=== PATIENT | female | born 1965 | race Caucasian/White ===

== ENCOUNTER 2017-03-11 09:57 | Outpatient (CLI) | payer MEDICAID | END 2017-03-11 09:58 | disposition home or self-care (01) | DX: Z12.31 Encounter for screening mammogram for malignant neoplasm of breast (principal) ==

== ENCOUNTER 2017-05-14 08:34 | Outpatient (CLI) | payer MEDICAID ==
[2017-05-14 10:32] LABS: HEMOGLOBIN A1C 0.64 g/dL
[2017-05-14 10:33] LABS: THYROID STIMULATING HORMONE 2.46 uIU/mL (0.34-5.60)
== END 2017-05-14 08:35 | disposition home or self-care (01) ==
LOC: LAB 08:34
PROVIDERS: ATTEND Internal Medicine Geriatric Medicine
DX: R53.83 Other fatigue (principal)
CPT/HCPCS: 36415; 82306; 82607; 83036; 84443; 85651; 86140

== ENCOUNTER 2017-07-21 08:20 | Outpatient (CLI) | payer MEDICAID ==
--- NOTE | 2017-07-21 09:54 | Ultrasound Report ---
COMPLETE ABDOMINAL ULTRASOUND: 07/21/2017 CLINICAL INDICATION: Leukopenia. 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 FINDINGS: The liver measures 16.2 cm. Hepatic echotexture is normal. No intrahepatic biliary dilatat ion or focal parenchymal lesion is present. The common bile duct measures 3 mm. The gallbladder is no rmal. The pancreas appears unremarkable. The right kidney measures 11.4 cm, and is unremarkable. The left kidney measures 11.4 cm, and demonstrates an 1.4 cm cyst in the lower pole. The spleen measures 8.5 cm, and demonstrates normal echotexture. The abdominal aorta and inferior vena cava are unremarka ble. No free fluid is present. IMPRESSION: INCIDENTAL LEFT RENAL CYST. NORMAL APPEARANCE OF THE SPLEEN. JOB #: [id number] EXT JOB #:[id number]
== END 2017-07-21 08:21 | disposition home or self-care (01) ==
LOC: DI 08:20
PROVIDERS: ATTEND Internal Medicine Hematology & Oncology
DX: D72.819 Decreased white blood cell count, unspecified (principal); N28.1 Cyst of kidney, acquired
CPT/HCPCS: 36415; 76700; 87040

== ENCOUNTER 2017-12-26 09:40 | Outpatient (CLI) | payer MEDICAID ==
[2017-12-26 17:47] LABS: BASOPHILS % (AUTO) 0.9 %; EOSINOPHILS # (AUTO) 0.1 10^3/uL (0.0-0.7); HGB - HEMOGLOBIN 14.9 g/dL (12.0-16.0); LYMPHOCYTES # (AUTO) 1.2 10^3/uL (1.5-3.5); LYMPHOCYTES % (AUTO) 36.5 %; MEAN CORPUSCULAR HGB CONC 33.1 g/dL (32.0-36.0); MEAN CORPUSCULAR VOLUME 87.7 fL (81.0-99.0); MEAN PLATELET VOLUME 9.1 fL (7.9-10.8); MONOCYTES # (AUTO) 0.2 10^3/uL (0.0-1.0); MONOCYTES % (AUTO) 6.7 %; NEUTROPHILS # (AUTO) 1.7 10^3/uL (1.5-6.6); NEUTROPHILS % (AUTO) 52.9 %; PLT - PLATELET COUNT 197 10^3/uL (130-450); RED BLOOD COUNT 5.14 10^6/uL (4.20-5.40); RED CELL DISTRIBUTION WIDTH 13.5 % (12.0-15.0); WHITE BLOOD COUNT 3.2 x10^3/uL (4.8-10.8)
[2017-12-26 18:04] LABS: RHEUMATOID FACTOR NEGATIVE (Negative)
[2017-12-26 18:19] LABS: ALBUMIN 4.7 g/dL (3.2-5.5); ALBUMIN/GLOBULIN RATIO 1.5 (1.0-2.2); ALKALINE PHOSPHATASE 61 IU/L (42-121); ALT ALANINE AMINOTRANSFERASE 23 IU/L (10-60); AST ASPARTATE AMINOTRANSFERASE 25 IU/L (10-42); BILIRUBIN,TOTAL 0.8 mg/dL (0.2-1.0); BUN - BLOOD UREA NITROGEN 14 mg/dL (6-20); CALCIUM 9.2 mg/dL (8.5-10.3); CARBON DIOXIDE - CO2 29 mmol/L (21-32); CHLORIDE 102 mmol/L (101-111); CREATININE 0.7 mg/dL (0.4-1.0); GFR - MDRD 87 (>89); GLUCOSE 92 mg/dL (70-100); SODIUM 137 mmol/L (135-145); TOTAL PROTEIN 7.9 g/dL (6.7-8.2); URIC ACID 3.5 mg/dL (2.6-7.2)
[2017-12-26 19:08] LABS: CRP - C-REACTIVE PROTEIN < 1.0 mg/dL (0-1.0)
[2017-12-26 19:31] LABS: HEMOGLOBIN A1C 0.58 g/dL; HEMOGLOBIN A1C % 5.5 % (4.6-6.2)
[2017-12-29 15:06] LABS: ANA SCREEN POSITIVE (NEGATIVE)
[2017-12-30 20:52] LABS: 18 KD (IGG) BAND NON-REACTIVE; 23 KD (IGG) BAND NON-REACTIVE; 23 KD (IGM) BLOT NON-REACTIVE; 28 KD (IGG) BAND NON-REACTIVE; 30 KD (IGG) BAND NON-REACTIVE; 39 KD (IGG) BAND NON-REACTIVE; 39 KD (IGM) BLOT NON-REACTIVE; 41 KD (IGG) BAND REACTIVE; 41 KD (IGM) BLOT NON-REACTIVE; 45 KD (IGG) BAND NON-REACTIVE; 58 KD (IGG) BAND NON-REACTIVE; 66 KD (IGG) BAND NON-REACTIVE; 93 KD (IGG) BAND NON-REACTIVE
[2017-12-30 21:08] LABS: CYCLIC CITRULL PEPTIDE CCP IGG <16 UNITS
== END 2017-12-26 09:41 | disposition home or self-care (01) ==
LOC: LAB.F 09:40
PROVIDERS: ATTEND Physician Assistant Medical
DX: R53.83 Other fatigue (principal); R73.01 Impaired fasting glucose; M25.50 Pain in unspecified joint
CPT/HCPCS: 36415; 80053; 83036; 84443; 84550; 85025; 85651; 86038; 86039; 86140; 86200; 86430; 86617

== ENCOUNTER 2018-04-13 15:19 | Outpatient (CLI) | payer MEDICAID ==
--- NOTE | 2018-04-14 14:26 | Mammography Report ---
DIGITAL SCREENING MAMMOGRAM: 04/13/2018 CLINICAL INDICATION: A 52-year-old nulliparous patient for screening. COMPARISON: 02/2017, 02/2015, 12/2013, 12/2011, 09/2010. TECHNIQUE: Routine CC and MLO projections as well as bilateral laterally exaggerated craniocaudal views were obtained of the breasts. FINDINGS: Parenchymal tissue within both breasts is heterogeneously dense, which may lower the sensitivity of mammography; however, there are no dominant masses, suspicious microcalcifications, or secondary signs of malignancy. In comparison to the previous studies, there are no significant changes. IMPRESSION: NO MAMMOGRAPHIC EVIDENCE OF MALIGNANCY. NO SIGNIFICANT INTERVAL CHANGES. RECOMMENDATION: Screening mammography is recommended annually. BIRADS CATEGORY 1 - NEGATIVE. STANDARD QUALIFYING STATEMENTS: 1. This examination was reviewed with the aid of Computed-Aided Detection (CAD). 2. A negative or benign imaging report should not delay biopsy if clinically suspicious findings are present. Consider surgical consultation if warranted. More than 5% of cancers are not identified by imaging. 3. Dense breasts may obscure an underlying neoplasm. TD: 04/14/2018 14:15
== END 2018-04-13 15:20 | disposition home or self-care (01) ==
LOC: DI 15:19
DX: Z12.31 Encounter for screening mammogram for malignant neoplasm of breast (principal)
CPT/HCPCS: 77067

== ENCOUNTER 2018-07-10 07:14 | Outpatient (CLI) | payer MEDICAID ==
[2018-07-10] MEDS ORDERED: IOPAMIDOL-300 100 ML VIAL ONE (07:42)
[2018-07-10] MEDS ORDERED: IOPAMIDOL-300 100 ML VIAL IVP ONE (08:16)
--- NOTE | 2018-07-10 09:02 | CT Report ---
Procedure Date: 07/10/2018 Accession Number: [id number] / [id number] Procedure: CT - Abdomen W/WO CPT Code: FULL RESULT: EXAM: CT ABDOMEN WITHOUT AND WITH CONTRAST EXAM DATE: 07/10/2018. HISTORY: Cystic lesion in the uncinate process of the pancreas. COMPARISON: Abdomen ultrasound done 07/21/2017. Abdomen CT done 03/19/2016.. TECHNIQUE: Routine helical CT imaging was performed through the abdomen before IV contrast, and during the arterial and venous phases and after administration of IV contrast: 100 cc of Isovue-300. Enteric contrast: No. Reconstruction: Sagittal and coronal reformatted images of the venous phase.. In accordance with CT protocol optimization, one or more of the following dose reduction techniques were utilized for this exam: automated exposure control, adjustment of mA and/or KV based on patient size, or use of iterative reconstructive technique. FINDINGS: Lung Bases: The lungs are clear. No pleural or pericardial effusion. Liver: Normal. No masses. Gallbladder/Bile Ducts: Normal. No bile duct dilatation. Spleen: Normal. Pancreas: 3 mm cystic lesion in the uncinate process is unchanged. Pancreas otherwise appears normal. No duct dilatation. Adrenal Glands: Normal. Kidneys: Normal. No masses or hydronephrosis. Peritoneal Cavity/Bowel: No bowel dilatation. Large volume of feces in the colon. No adenopathy. No fluid collections or free air. Vasculature: Normal. Bones: Normal. IMPRESSION: The 3 mm cystic lesion in the uncinate process of the pancreas is unchanged. Recommend follow-up in 24 months, and until stability has been confirmed for a period of 5 years after the initial study. Moderate volume of feces in the visualized colon. Otherwise normal examination. RADIA
== END 2018-07-10 07:15 | disposition home or self-care (01) ==
LOC: DI 07:14
PROVIDERS: ATTEND Family Medicine
DX: K86.9 Disease of pancreas, unspecified (principal)
CPT/HCPCS: 74170; Q9967

== ENCOUNTER 2018-12-22 08:20 | Outpatient (CLI) | payer MEDICAID ==
[2018-12-22 08:45] LABS: BASOPHILS % (AUTO) 0.8 %; EOSINOPHILS # (AUTO) 0.1 10^3/uL (0.0-0.7); EOSINOPHILS % (AUTO) 3.7 %; HGB - HEMOGLOBIN 14.3 g/dL (12.0-16.0); LYMPHOCYTES # (AUTO) 1.2 10^3/uL (1.5-3.5); LYMPHOCYTES % (AUTO) 31.4 %; MEAN CORPUSCULAR HEMOGLOBIN 29.6 pg (27.0-31.0); MEAN CORPUSCULAR HGB CONC 34.1 g/dL (32.0-36.0); MEAN CORPUSCULAR VOLUME 86.9 fL (81.0-99.0); MEAN PLATELET VOLUME 8.1 fL (7.9-10.8); MONOCYTES # (AUTO) 0.3 10^3/uL (0.0-1.0); MONOCYTES % (AUTO) 7.7 %; NEUTROPHILS # (AUTO) 2.1 10^3/uL (1.5-6.6); NEUTROPHILS % (AUTO) 56.4 %; PLT - PLATELET COUNT 197 10^3/uL (130-450); RED BLOOD COUNT 4.82 10^6/uL (4.20-5.40); RED CELL DISTRIBUTION WIDTH 13.5 % (12.0-15.0); WHITE BLOOD COUNT 3.7 x10^3/uL (4.8-10.8)
[2018-12-22 09:14] LABS: ALBUMIN 3.9 g/dL (3.2-5.5); ALBUMIN/GLOBULIN RATIO 1.3 (1.0-2.2); BILIRUBIN,TOTAL 0.7 mg/dL (0.2-1.0); CREATININE 0.6 mg/dL (0.4-1.0)
--- NOTE | 2018-12-22 10:38 | XRAY Report ---
Reason: SHORTNESS OF BREATH Procedure Date: 12/22/2018 Accession Number: [id number] / [id number] Procedure: XR - Chest 2 View X-Ray CPT Code: 34126 FULL RESULT: EXAM: CHEST RADIOGRAPHY EXAM DATE: 12/22/2018 09:00 AM. CLINICAL HISTORY: SHORTNESS OF BREATH. COMPARISON: CHEST 1 VIEW 08/28/2016 10:33 AM CHEST 2 VIEW PA/LAT 06/11/2015 9:03 AM. TECHNIQUE: 2 views. FINDINGS: Lungs/Pleura: No focal opacities evident. No pleural effusion. No pneumothorax. Normal volumes. Mediastinum: Heart and mediastinal contours are unremarkable. Other: No acute osseous abnormality. IMPRESSION: Normal 2-view chest radiography. RADIA
== END 2018-12-22 08:21 | disposition home or self-care (01) ==
LOC: LAB 08:20 → DI 08:21
PROVIDERS: ATTEND Family Medicine
DX: R06.02 Shortness of breath (principal); R53.83 Other fatigue
CPT/HCPCS: 36415; 71046; 80053; 84443; 85025; 85379

== ENCOUNTER 2019-01-18 13:56 | Outpatient (CLI) | payer MEDICAID | END 2019-01-18 13:57 | disposition home or self-care (01) | LOC: SC 13:56 | PROVIDERS: ATTEND Internal Medicine Pulmonary Disease | DX: R53.83 Other fatigue (principal); R06.83 Snoring | CPT/HCPCS: 99203; 99212 ==

== ENCOUNTER 2019-03-17 19:37 | Outpatient (CLI) | payer MEDICAID | END 2019-03-17 19:38 | disposition home or self-care (01) | LOC: SC 19:37 | PROVIDERS: ATTEND Internal Medicine Pulmonary Disease | DX: G47.61 Periodic limb movement disorder (principal) | CPT/HCPCS: 95810 ==

== ENCOUNTER 2019-04-13 10:02 | Outpatient (CLI) | payer MEDICAID | END 2019-04-13 10:03 | disposition home or self-care (01) | LOC: SC 10:02 | PROVIDERS: ATTEND Internal Medicine Pulmonary Disease | DX: G47.61 Periodic limb movement disorder (principal) | CPT/HCPCS: 99212; 99213 ==

== ENCOUNTER 2020-01-25 11:08 | Emergency (ER) | payer MEDICAID ==
[2020-01-25 11:39] LABS: BASOPHILS % (AUTO) 0.5 %; EOSINOPHILS # (AUTO) 0.1 10^3/uL (0.0-0.7); EOSINOPHILS % (AUTO) 1.2 %; LYMPHOCYTES # (AUTO) 1.3 10^3/uL (1.5-3.5); LYMPHOCYTES % (AUTO) 30.5 %; MEAN CORPUSCULAR HEMOGLOBIN 29.2 pg (27.0-31.0); MEAN CORPUSCULAR HGB CONC 33.3 g/dL (32.0-36.0); MEAN CORPUSCULAR VOLUME 87.6 fL (81.0-99.0); MEAN PLATELET VOLUME 9.6 fL (7.9-10.8); MONOCYTES # (AUTO) 0.3 10^3/uL (0.0-1.0); MONOCYTES % (AUTO) 6.8 %; NEUTROPHILS # (AUTO) 2.5 10^3/uL (1.5-6.6); NEUTROPHILS % (AUTO) 60.8 %; PLT - PLATELET COUNT 218 10^3/uL (130-450); RED BLOOD COUNT 5.48 10^6/uL (4.20-5.40); RED CELL DISTRIBUTION WIDTH 13.1 % (12.0-15.0); WHITE BLOOD COUNT 4.1 x10^3/uL (4.8-10.8)
[2020-01-25 11:52] LABS: ALBUMIN 4.7 g/dL (3.2-5.5); ALBUMIN/GLOBULIN RATIO 1.4 (1.0-2.2); BILIRUBIN,TOTAL 0.7 mg/dL (0.2-1.0); CALCIUM 9.5 mg/dL (8.5-10.3); CREATININE 0.6 mg/dL (0.4-1.0)
--- NOTE | 2020-01-25 11:58 | XRAY Report ---
Reason: Chest pain Procedure Date: 01/25/2020 Accession Number: [id number] / [id number] Procedure: XR - Chest 1 View X-Ray CPT Code: 84936 Final Report FULL RESULT: EXAM: CHEST RADIOGRAPHY EXAM DATE: 01/25/2020 11:42 AM. CLINICAL HISTORY: Chest pain. COMPARISON: CHEST 2 VIEW 12/22/2018 8:47 AM. TECHNIQUE: 1 view. FINDINGS: Lungs/Pleura: No focal opacities evident. No pleural effusion. No pneumothorax. Mediastinum: Within exam limitations, the cardiomediastinal contour is normal. Other: None. IMPRESSION: Normal single view chest. RADIA
--- NOTE | 2020-01-25 12:30 | ED Physician Documentation ---
PD HPI CHEST PAIN - Stated complaint Stated Complaint: CHEST PX/PRESSURE - Chief complaint Chief Complaint: Cardiac - History obtained from History obtained from: Patient (This is a 54-year-old woman who has had ongoing chest symptoms for years. She comes in today with worsening of her chronic chest pain for the last few days. It is a substernal chest pressure radiating to the shoulder and neck. It is associated with shortness of breath and she has palpitations if she lies flat. It sounds like she is had extensive work-up for this and is diagnosed with Pulmonic stenosis and pulmonary hypertension. She needs to see a congenital adult communication professor and potentially have surgery for this. Has an appointment at [place] later this week with a communication professor.) Review of Systems Constitutional: denies: Fever, Chills Cardiac: reports: Chest pain / pressure, Palpitations. denies: Pedal edema, Calf pain Respiratory: reports: Dyspnea. 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 : None HEENT: None Psych: Depression Musculoskeletal: None Derm: None - Past Surgical History Past Surgical History: Yes General: Colonoscopy - Present Medications Home Medications: Ambulatory Orders Medication Instructions Recorded Confirmed Sertraline [Zoloft] 50 mg PO DAILY 03/21/14 09/22/15 - Allergies Allergies/Adverse Reactions: Allergies Allergy/AdvReac Type Severity Reaction Status Date / Time No Known Drug Allergies Allergy Verified 08/28/16 10:19 - Social History Does the pt smoke?: No Smoking Status: Never smoker Does the pt drink ETOH?: Yes Does the pt have substance abuse?: No - Immunizations Immunizations are current?: Yes - POLST Patient has POLST: No PD ED PE NORMAL - Vitals Vital signs reviewed: Yes - General General: Alert and oriented X 3, Other (She is very anxious with pressured speech,) - Neck Neck: No JVD - Cardiac Cardiac: RRR, No murmur, Other (3 out of 6 decrescendo systolic murmur with a loud S2) - Respiratory Respiratory: Clear bilaterally - Abdomen Abdomen: Non tender - Extremities Extremities: No edema, No calf tenderness / cord - Neuro Neuro: Alert and oriented X 3, Normal speech Results - Vitals Vitals: Vital Signs - 24 hr 01/25/20 01/25/20 01/25/20 11:13 11:49 12:35 Temperature 36.8 C Heart Rate 82 65 74 Respiratory 18 16 16 Rate Blood Pressure 134/78 H 154/96 H 128/93 H O2 Saturation 100 96 96 Oxygen O2 Source Room air - EKG (time done) 1130 Rate: Rate (enter#) (70) Rhythm: NSR [place]: Normal Intervals: Normal [place] QRS: Normal Ischemia: Normal ST segments Computer interpretation: Agree with computer - Labs Labs: Laboratory Tests 01/25/20 01/25/20 01/25/20 11:30 11:30 11:30 WBC 4.1 L RBC 5.48 H Hgb 16.0 Hct 48.0 H MCV 87.6 MCH 29.2 MCHC 33.3 RDW 13.1 Plt Count 218 MPV 9.6 Neut # (Auto) 2.5 Lymph # (Auto) 1.3 L [place] # (Auto) 0.3 Eos # (Auto) 0.1 Baso # (Auto) 0.0 Absolute Nucleated RBC 0.00 Nucleated RBC % 0.0 Sodium 141 Potassium 4.0 Chloride 103 Carbon Dioxide 28 Anion Gap 10.0 BUN 14 Creatinine 0.6 Estimated GFR (MDRD) 103 Glucose 106 H Calcium 9.5 Total Bilirubin 0.7 AST 38 ALT 44 Alkaline Phosphatase 61 Troponin I High Sens 7.8 Total Protein 8.0 Albumin 4.7 Globulin 3.3 Albumin/Globulin Ratio 1.4 Lipase 50 PD MEDICAL DECISION MAKING - ED course ED course: This is a 54-year-old woman with known pulmonary stenosis and a worsening of chronic chest pain. Objectively there are no acute findings, she is very anxious and at times belligerent with me. She told me things such as "you need to read a book." She asked me if ongoing pulmonary hypertension was bad for her heart and I agreed that she certainly need to have it addressed but then really could not understand why she could not be admitted here (Urgency present and no communication professor here). I offered to send her to [place] for inpatient evaluation which she refused. There is no evidence of decompensated heart failure or WI. Departure - Departure Disposition: 01 Home, Self Care Clinical Impression: Pulmonary hypertension Chest pain Qualifiers: Chest pain type: unspecified Qualified Code(s): R07.9 - Chest pain, unspecified Condition: Good Record reviewed to determine appropriate education?: Yes Instructions: ED Chest Pain Atypical Unkn Cause Comments: Followup with your communication professor as scheduled this week or if you change your mind and want to go to [facility] you can return for transfer. Return anytime if worse. Discharge Date/Time: 01/25/20 12:36
[2020-01-25 12:36] VITALS: BP 128/93
== END 2020-01-25 12:36 | disposition home or self-care (01) ==
LOC: ED 11:08
DX: I27.20 Pulmonary hypertension, unspecified (principal); R07.9 Chest pain, unspecified
CPT/HCPCS: 36415; 71045; 80053; 83690; 84484; 85025; 93005; 99284

== ENCOUNTER 2020-05-17 10:57 | Outpatient (CLI) | payer MEDICAID ==
--- NOTE | 2020-05-18 11:06 | Mammography Report ---
BILATERAL DIGITAL SCREENING MAMMOGRAM 3D/2D: 05/17/2020 CLINICAL: Routine screening. Comparison is made to exams dated: 04/13/2018 mammogram, 03/11/2017 mammogram, and 03/11/2015 mammogram - [facility]. The tissue of both breasts is heterogeneously dense. This may lower the sensitivity of mammography. No significant masses, calcifications, or other findings are seen in either breast. There has been no significant interval change. IMPRESSION: NEGATIVE There is no mammographic evidence of malignancy. A 1 year screening mammogram is recommended. This exam was interpreted at Station ID: [id number]. NOTE: For mammograms, a report in lay terms will be sent to the patient. Approximately 15% of breast malignancies will not be visualized mammographically. In the management of a palpable breast mass, a negative mammogram must not discourage biopsy of a clinically suspicious lesion. Electronically Signed By: Jovon Cui M.D. [facility] [place]05/17/2020 13:54:17 ACR BI-RADS Category 1: Negative [id number] PARENCHYMAL PATTERN: (D) - The breast(s) demonstrate(s) heterogeneously dense fibroglandular kate ramos. BI-RADS CATEGORY: (1) - 1 RECOMMENDATION: (ANNUAL) - Recommend routine annual screening mammography. [id number] 1 year screening LATERALITY: (B)
== END 2020-05-17 10:58 | disposition home or self-care (01) ==
LOC: DI 10:57
DX: Z12.31 Encounter for screening mammogram for malignant neoplasm of breast (principal)
CPT/HCPCS: 77063; 77067

== ENCOUNTER 2020-06-05 12:50 | Outpatient (CLI) | payer MEDICAID ==
--- NOTE | 2020-06-05 14:13 | Ultrasound Report ---
PROCEDURE: Ext Limited Non Vascular INDICATIONS: KNEE JOINT PAIN TECHNIQUE: Real-time scanning was performed of the left knee, with image documentation. COMPARISON: None. FINDINGS: Focus of decreased echogenicity is noted in the posterior knee with areas of internal debr is. It measures 9.4 x 2.0 x 5.3 cm. It appears to connect to the medial knee joint. IMPRESSION: Echogenic focus posterior to the knee as above. Given connection to the medial knee join t, meniscal cyst is favored. However, Muñoz's cyst cannot be excluded. As clinically indicated, MRI m ay be obtained for additional evaluation. Reviewed by: Ghada Mendez MD on 06/05/2020 2:12 PM PDT Approved by: Ghada Mendez MD on 06/05/2020 2:12 PM PDT Station ID: [id number]
== END 2020-06-05 12:51 | disposition home or self-care (01) ==
LOC: DI 12:50
PROVIDERS: ATTEND Orthopaedic Surgery
DX: M25.561 Pain in right knee (principal); M25.562 Pain in left knee
CPT/HCPCS: 76882

== ENCOUNTER 2020-07-10 13:09 | Outpatient (CLI) | payer MEDICAID ==
[2020-07-10] MEDS ORDERED: BUFFERED LIDOCAINE 10 ML SYRINGE ONE (13:38)
[2020-07-10] MEDS ORDERED: BUFFERED LIDOCAINE 10 ML SYRINGE IU ONE (14:55)
--- NOTE | 2020-07-10 16:27 | Ultrasound Report ---
PROCEDURE: FNA Bx w/US Gnd 1st les INDICATIONS: KNEE EFFUSION, LT TECHNIQUE: The indications, alternatives, benefits, risks, and complications of the procedure were explained to the patient. Written informed consent was obtained and placed in the chart. The left popliteal kenny a was examined sonographically and a site was chosen for ultrasound guided percutaneous sampling. Th e skin was prepared and draped in the usual fashion, and anesthetized with 1% lidocaine infiltrated f rom the skin down to the lesion.A bandage was applied to the area of access at completion of the stud y. COMPARISON: None. FINDINGS: Location(s) of lesion(s) sampled: Left popliteal fossa collection [place]: 22-gauge spinal needle. Number of passes: 1, thick halo yellow fluid was aspirated, approximately 40 cc Medications: 1% lidocaine for local anaesthesia. Complications: None. IMPRESSION: Successful guided aspiration of popliteal fossa fluid, with cytology results pending. Reviewed by: Ghada Mendez MD on 07/10/2020 4:26 PM PDT Approved by: Ghada Mendez MD on 07/10/2020 4:26 PM PDT Station ID: [id number]
== END 2020-07-10 13:10 | disposition home or self-care (01) ==
LOC: DI 13:09
PROVIDERS: ATTEND Physician Assistant
DX: M25.462 Effusion, left knee (principal)
CPT/HCPCS: 10005

== ENCOUNTER 2020-12-08 08:13 | Outpatient (CLI) | payer MEDICAID ==
[2020-12-08 08:28] LABS: BASOPHILS % (AUTO) 0.7 %; EOSINOPHILS # (AUTO) 0.1 10^3/uL (0.0-0.7); EOSINOPHILS % (AUTO) 3.2 %; HGB - HEMOGLOBIN 14.9 g/dL (12.0-16.0); MEAN CORPUSCULAR HEMOGLOBIN 29.4 pg (27.0-31.0); MEAN CORPUSCULAR HGB CONC 32.8 g/dL (32.0-36.0); MEAN CORPUSCULAR VOLUME 89.5 fL (81.0-99.0); MEAN PLATELET VOLUME 9.7 fL (7.9-10.8); MONOCYTES # (AUTO) 0.3 10^3/uL (0.0-1.0); MONOCYTES % (AUTO) 6.5 %; NEUTROPHILS # (AUTO) 2.8 10^3/uL (1.5-6.6); NEUTROPHILS % (AUTO) 65.4 %; PLT - PLATELET COUNT 211 10^3/uL (130-450); RED BLOOD COUNT 5.07 10^6/uL (4.20-5.40); RED CELL DISTRIBUTION WIDTH 13.1 % (12.0-15.0); WHITE BLOOD COUNT 4.3 x10^3/uL (4.8-10.8)
[2020-12-08 08:47] LABS: ALBUMIN 4.3 g/dL (3.2-5.5); ALBUMIN/GLOBULIN RATIO 1.2 (1.0-2.2); ALKALINE PHOSPHATASE 85 IU/L (42-121); ALT ALANINE AMINOTRANSFERASE 52 IU/L (10-60); AST ASPARTATE AMINOTRANSFERASE 42 IU/L (10-42); BILIRUBIN,TOTAL 1.1 mg/dL (0.2-1.0); BUN - BLOOD UREA NITROGEN 8 mg/dL (6-20); CALCIUM 9.6 mg/dL (8.5-10.3); CARBON DIOXIDE - CO2 30 mmol/L (21-32); CHLORIDE 103 mmol/L (101-111); CHOL/HDL RATIO 3.4 (<4.4); CHOLESTEROL 294 mg/dL; CREATININE 0.6 mg/dL (0.4-1.0); GLUCOSE 116 mg/dL (70-100); HDL CHOLESTEROL 87 mg/dL; LDL CHOLESTEROL,CALCULATED 189 mg/dL; LDL/HDL RATIO 2.2 (<4.4); SODIUM 143 mmol/L (135-145); TOTAL PROTEIN 7.9 g/dL (6.7-8.2); VLDL CHOLESTEROL 18 mg/dL
== END 2020-12-08 08:14 | disposition home or self-care (01) ==
LOC: LAB 08:13
PROVIDERS: ATTEND Family Medicine
DX: F32.9 Major depressive disorder, single episode, unspecified (principal)
CPT/HCPCS: 36415; 80053; 80061; 83721; 84443; 85025

== ENCOUNTER 2021-03-31 11:18 | Outpatient (CLI) | payer MEDICAID ==
[2021-03-31 11:52] LABS: BASOPHILS % (AUTO) 0.8 %; EOSINOPHILS # (AUTO) 0.1 10^3/uL (0.0-0.7); EOSINOPHILS % (AUTO) 1.6 %; HCT - HEMATOCRIT 44.7 % (37.0-47.0); HGB - HEMOGLOBIN 14.5 g/dL (12.0-16.0); LYMPHOCYTES # (AUTO) 1.4 10^3/uL (1.5-3.5); LYMPHOCYTES % (AUTO) 38.5 %; MEAN CORPUSCULAR HEMOGLOBIN 28.7 pg (27.0-31.0); MEAN CORPUSCULAR HGB CONC 32.4 g/dL (32.0-36.0); MEAN CORPUSCULAR VOLUME 88.3 fL (81.0-99.0); MEAN PLATELET VOLUME 9.8 fL (7.9-10.8); MONOCYTES # (AUTO) 0.3 10^3/uL (0.0-1.0); MONOCYTES % (AUTO) 7.7 %; NEUTROPHILS # (AUTO) 1.9 10^3/uL (1.5-6.6); NEUTROPHILS % (AUTO) 51.1 %; PLT - PLATELET COUNT 222 10^3/uL (130-450); RED BLOOD COUNT 5.06 10^6/uL (4.20-5.40); WHITE BLOOD COUNT 3.6 x10^3/uL (4.8-10.8)
[2021-03-31 12:07] LABS: CHOL/HDL RATIO 3.3 (<4.4); CHOLESTEROL 282 mg/dL; HDL CHOLESTEROL 86 mg/dL; LDL CHOLESTEROL,CALCULATED 184 mg/dL; LDL/HDL RATIO 2.1 (<4.4); TRIGLYCERIDES 60 mg/dL; VLDL CHOLESTEROL 12 mg/dL
[2021-03-31 12:19] LABS: ESTIMATED AVERAGE GLUCOSE 108 mg/dL (70-100); HEMOGLOBIN A1c% 5.4 % (4.27-6.07)
== END 2021-03-31 11:19 | disposition home or self-care (01) ==
LOC: LAB 11:18
PROVIDERS: ATTEND Family Medicine
DX: F32.9 Major depressive disorder, single episode, unspecified (principal); E78.00 Pure hypercholesterolemia, unspecified; R73.09 Other abnormal glucose
CPT/HCPCS: 36415; 80061; 83036; 83721; 84443; 85025

== ENCOUNTER 2021-04-02 14:06 | Outpatient (CLI) | payer MEDICAID ==
[2021-04-02] MEDS ORDERED: BUFFERED LIDOCAINE 10 ML SYRINGE ONE (14:42)
[2021-04-02] MEDS ORDERED: BUFFERED LIDOCAINE 10 ML SYRINGE IU ONE (15:56)
--- NOTE | 2021-04-02 16:45 | Ultrasound Report ---
PROCEDURE: FNA Bx w/US Gnd 1st les INDICATIONS: The patient reports recurrent popliteal cysts behind the knees bilaterally. TECHNIQUE: The indications, alternatives, benefits, risks, and complications of the procedure were explained to the patient. Written informed consent was obtained and placed in the chart. The area of interest wa s examined sonographically and a site was chosen for ultrasound guided percutaneous sampling. The sk in was prepared and draped in the usual fashion, and anesthetized with 1% lidocaine infiltrated from the skin down to the lesion. Multiple passes were then performed, with contents emptied into an [facility] pathology specimen container. A bandage was applied to the area of access at completion of t he study. COMPARISON: Prior popliteal cyst aspiration 07/10/2020 reviewed.. FINDINGS: Location(s) of lesion(s) sampled: Sonographic assessment at the posterior aspect of the right and le ft knees was performed. No left knee popliteal cyst was identified despite patient reporting a palpab le abnormality behind the left knee. In contrast, and easily visible right-sided popliteal cyst with found, and the patient is relatively thin and easily evaluated by this right-sided cyst measures 1.8 x 4.6 x 5.7 cm, approximately 25 cc estimated volume. [place]: 25 gauge hypodermic needle for local anesthesia and thereafter 18-gauge short needle to acc ess the inferior margin of the popliteal cyst on the right.. Number of passes: Single pass, with virtually complete emptying of the right-sided popliteal cyst [place] 22-23 mL of clear slightly yellow viscous fluid which on manual sterile glove palpation was ty pical of bursal or joint fluid. Medications: 1% lidocaine for local anaesthesia. Complications: None. IMPRESSION: Successful ultrasound-guided 18-gauge needle aspiration virtually emptying the right-sided popliteal cyst of 22-23 cc of typical bursal/joint fluid. Note that the patient reports a palpable abnormality developing behind her left knee, increasing over time, and that sonographic evaluation did not identify a popliteal cyst on the left. Follow-up physi cheli examination and consideration of contrast-enhanced knee MRI may be warranted on the left. Additio ella, MRI assessment on the right might identify a communication between the joint space and the doc umented right-sided popliteal cyst if surgical planning is anticipated. Reviewed by: Davian Berkowitz MD on 04/02/2021 4:44 PM PDT Approved by: Davian Berkowitz MD on 04/02/2021 4:44 PM PDT Station ID: [id number]
== END 2021-04-02 14:07 | disposition home or self-care (01) ==
LOC: DI 14:06
PROVIDERS: ATTEND Orthopaedic Surgery
DX: M71.22 Synovial cyst of popliteal space [Baker], left knee (principal); M71.21 Synovial cyst of popliteal space [Baker], right knee
CPT/HCPCS: 10005

== ENCOUNTER 2021-05-15 16:57 | Emergency (ER) | payer MEDICAID ==
[2021-05-15 17:25] LABS: BASOPHILS % (AUTO) 0.6 %; EOSINOPHILS # (AUTO) 0.1 10^3/uL (0.0-0.7); EOSINOPHILS % (AUTO) 1.4 %; HCT - HEMATOCRIT 41.1 % (37.0-47.0); HGB - HEMOGLOBIN 13.3 g/dL (12.0-16.0); LYMPHOCYTES # (AUTO) 1.7 10^3/uL (1.5-3.5); LYMPHOCYTES % (AUTO) 33.5 %; MEAN CORPUSCULAR HEMOGLOBIN 29.1 pg (27.0-31.0); MEAN CORPUSCULAR HGB CONC 32.4 g/dL (32.0-36.0); MEAN CORPUSCULAR VOLUME 89.9 fL (81.0-99.0); MEAN PLATELET VOLUME 9.6 fL (7.9-10.8); MONOCYTES # (AUTO) 0.3 10^3/uL (0.0-1.0); MONOCYTES % (AUTO) 6.7 %; NEUTROPHILS # (AUTO) 2.9 10^3/uL (1.5-6.6); NEUTROPHILS % (AUTO) 57.6 %; PLT - PLATELET COUNT 192 10^3/uL (130-450); RED BLOOD COUNT 4.57 10^6/uL (4.20-5.40); RED CELL DISTRIBUTION WIDTH 13.1 % (12.0-15.0); WHITE BLOOD COUNT 5.1 x10^3/uL (4.8-10.8)
[2021-05-15 17:40] LABS: ALBUMIN 4.2 g/dL (3.2-5.5); ALBUMIN/GLOBULIN RATIO 1.4 (1.0-2.2); BILIRUBIN,TOTAL 0.6 mg/dL (0.2-1.0); CALCIUM 9.1 mg/dL (8.5-10.3); CREATININE 0.7 mg/dL (0.4-1.0); POTASSIUM 3.7 mmol/L (3.5-5.0); TOTAL PROTEIN 7.1 g/dL (6.7-8.2)
--- NOTE | 2021-05-15 17:42 | XRAY Report ---
PROCEDURE: Chest 1 View X-Ray INDICATIONS: Chest pain TECHNIQUE: One view of the chest was acquired. COMPARISON: Chest x-ray 01/25/2020 FINDINGS: Surgical changes and devices: None. Lungs and pleura: No pleural effusions or pneumothorax. Lungs are clear. Mediastinum: Mediastinal contours appear normal. Heart size is normal. Bones and chest wall: No suspicious bony lesions. Overlying soft tissues appear unremarkable. IMPRESSION: No acute pulmonary process. Reviewed by: Ghada Mendez MD on 05/15/2021 5:41 PM PDT Approved by: Ghada Mendez MD on 05/15/2021 5:41 PM PDT Station ID: [id number]
[2021-05-15 18:09] VITALS: BP 134/84
--- NOTE | 2021-05-15 18:30 | ED Physician Documentation ---
History of Present Illness - Stated complaint Stated Complaint: CP - Chief complaint Chief Complaint: Cardiac - Additonal information Additional information: This is a 56-year-old female who has ongoing chest discomfort. This has been an ongoing problem for a number of years. She has been told that she has pulmonary valve stenosis as well as elevated pressures within her lungs. She reports that she typically gets chest pain with exertion but over the last 3 to 4 days she has had chest pain at rest. This pain is sharp sometimes radiates to the arm as well as to her neck. No diaphoresis nausea vomiting. She reports that she is under an inordinate amount of stress. She is working without insurance and has been unable to see the [facility] or a financial accounting analyst in [place] that deals with congenital cardia defects Review of Systems Eyes: reports: Reviewed and negative Nose: reports: Reviewed and negative Throat: reports: Reviewed and negative Cardiac: reports: Chest pain / pressure. 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 : None HEENT: None Psych: Depression Musculoskeletal: None Derm: None - Past Surgical History Past Surgical History: Yes General: Colonoscopy - Present Medications Home Medications: Ambulatory Orders Medication Instructions Recorded Confirmed Ascorbic Acid [Vitamin C] 2,000 mg PO DAILY 05/11/21 05/15/21 Calcium Phosphate Dibas/Vit D3 2,000 unit PO DAILY 05/11/21 05/15/21 [Vitamin O4-Scwwnmy-Cuit Tablet] Omeprazole [PriLOSEC] 20 mg PO DAILY 05/11/21 05/15/21 Sertraline HCl 100 mg PO DAILY 05/11/21 05/15/21 - Allergies Allergies/Adverse Reactions: Allergies Allergy/AdvReac Type Severity Reaction Status Date / Time No Known Drug Allergies Allergy Verified 08/28/16 10:19 - Social History Does the pt smoke?: No Smoking Status: Never smoker Does the pt drink ETOH?: Yes Does the pt have substance abuse?: No - Immunizations Immunizations are current?: Yes - POLST Patient has POLST: No PD ED PE NORMAL - General General: Alert and oriented X 3 - HEENT HEENT: Atraumatic, EOMI, Ears normal - Neck Neck: Supple, no meningeal sign, No bony TTP - Cardiac Cardiac: RRR. No: No murmur, No gallop, No rub - Respiratory Respiratory: No respiratory distress, Clear bilaterally - Abdomen Abdomen: Normal bowel sounds, Non tender Results - Vitals Vitals: Vital Signs - 24 hr 05/15/21 05/15/21 05/15/21 17:03 17:30 18:08 Temperature 36.8 C Heart Rate 70 56 L 64 Respiratory 16 10 L 20 Rate Blood Pressure 143/73 H 126/90 H 134/84 H O2 Saturation 98 99 99 Oxygen O2 Source Room air - EKG (time done) 1702 Rate: Rate (enter#) (60) Rhythm: NSR [place]: Normal Intervals: Normal [place]. No: Prolonged QT QRS: Normal Ischemia: Non specific changes Compare to prior EKG: Unchanged from prior EKG Computer interpretation: Agree with computer - Labs Labs: Laboratory Tests 05/15/21 05/15/21 05/15/21 17:11 17:19 17:19 WBC 5.1 RBC 4.57 Hgb 13.3 Hct 41.1 MCV 89.9 MCH 29.1 MCHC 32.4 RDW 13.1 Plt Count 192 MPV 9.6 Neut # (Auto) 2.9 Lymph # (Auto) 1.7 [place] # (Auto) 0.3 Eos # (Auto) 0.1 Baso # (Auto) 0.0 Absolute Nucleated RBC 0.00 Nucleated RBC % 0.0 Sodium 140 Potassium 3.7 Chloride 104 Carbon Dioxide 28 Anion Gap 8.0 BUN 15 Creatinine 0.7 Estimated GFR (MDRD) 86 L Glucose 93 Calcium 9.1 Total Bilirubin 0.6 AST 27 ALT 20 Alkaline Phosphatase 55 Troponin I High Sens 10.5 Total Protein 7.1 Albumin 4.2 Globulin 2.9 Albumin/Globulin Ratio 1.4 Lipase 48 - Rads (name of study) CXR Radiology: Final report received (No acute cardiopulmonary process) PD MEDICAL DECISION MAKING - ED course Complexity details: reviewed results, re-evaluated patient, d/w patient ED course: This is a very well-appearing 56-year-old female that presents to the emergency department for evaluation of left-sided chest pain with radiation to her neck and arm. This has been an intermittent problem for a number of years but is worse over the last 4 days. She reports to me that she has had previous stress test that did not show findings consistent with coronary artery disease. However there is concern for possible pulmonary hypertension as well as a poss ible congenital cardiac defect that is as yet unclear. She is scheduled to see a an urgent watch hairspring assembler in 72 hours time. Screening EKG today is unchanged from January 2020. High-sensitivity troponin is negative. Chest x-ray and labs are otherwise unremarkable. I did offer the patient angio of her chest and neck for further differentiation though this would not be diagnostic of elevated right heart pressures but she declined at this time. She would like to continue follow-up with her watch hairspring assembler and feels reassured knowing that her troponin is negative. Departure - Departure Disposition: 01 Home, Self Care Clinical Impression: Chest pain Qualifiers: Chest pain type: unspecified Qualified Code(s): R07.9 - Chest pain, unspecified Condition: Stable Record reviewed to determine appropriate education?: Yes Comments: Maranda I hope that you are able to find the answers that you need. Your EKG today is essentially normal and unchanged from January 2020. Your screening labs including your blood count your electrolytes as well as your troponin are all normal. Your chest x-ray did not show any worrisome findings. At this time it is not clear what the cause of the left-sided chest and neck pain is. Further evaluation with a financial accounting analyst that may include right-sided heart caths or a repeat stress test and echocardiogram should be considered. Return to the emergency department if you develop worsening chest pain have any fainting episodes, slurred speech, facial droop or arm and leg weakness
== END 2021-05-15 18:55 | disposition home or self-care (01) ==
LOC: ED 16:57
DX: R07.89 Other chest pain (principal); M54.2 Cervicalgia; M79.603 Pain in arm, unspecified
CPT/HCPCS: 36415; 80053; 83690; 84484; 85025; 93005; 99284

== ENCOUNTER 2021-05-15 19:31 | Outpatient (CLI) | payer MEDICAID ==
[2021-05-15 19:38] LABS: BASOPHILS % (AUTO) 0.6 %; EOSINOPHILS # (AUTO) 0.1 10^3/uL (0.0-0.7); EOSINOPHILS % (AUTO) 1.5 %; HCT - HEMATOCRIT 39.4 % (37.0-47.0); HGB - HEMOGLOBIN 12.8 g/dL (12.0-16.0); LYMPHOCYTES # (AUTO) 2.1 10^3/uL (1.5-3.5); LYMPHOCYTES % (AUTO) 38.6 %; MEAN CORPUSCULAR HEMOGLOBIN 29.4 pg (27.0-31.0); MEAN CORPUSCULAR HGB CONC 32.5 g/dL (32.0-36.0); MEAN CORPUSCULAR VOLUME 90.4 fL (81.0-99.0); MEAN PLATELET VOLUME 9.5 fL (7.9-10.8); MONOCYTES # (AUTO) 0.3 10^3/uL (0.0-1.0); NEUTROPHILS # (AUTO) 2.9 10^3/uL (1.5-6.6); NEUTROPHILS % (AUTO) 53.3 %; PLT - PLATELET COUNT 201 10^3/uL (130-450); RED BLOOD COUNT 4.36 10^6/uL (4.20-5.40); WHITE BLOOD COUNT 5.3 x10^3/uL (4.8-10.8)
[2021-05-18 01:37] LABS: HIV AG/AB 4TH GEN NON-REACTIVE (NON-REACTIVE)
[2021-05-19 14:36] LABS: METHYLMALONIC ACID 246 nmol/L (87-318)
[2021-05-19 19:02] LABS: COPPER 98 mcg/dL (70-175)
[2021-05-21 11:38] LABS: PATHOLOGIST SLIDE COMMENTS SEE SEPARATE REPORT
== END 2021-05-15 19:32 | disposition home or self-care (01) ==
LOC: LAB 19:31
PROVIDERS: ATTEND Internal Medicine Hematology & Oncology
DX: D72.819 Decreased white blood cell count, unspecified (principal)
CPT/HCPCS: 36415; 81599; 82525; 82607; 83921; 84630; 85025; 86704; 86706; 86708; 86803; 87340; 87389

== ENCOUNTER 2021-05-18 15:48 | Outpatient (CLI) | payer MEDICAID ==
[2021-05-21 15:42] LABS: NIL 0.02 IU/mL
== END 2021-05-18 15:49 | disposition home or self-care (01) ==
LOC: LAB 15:48
PROVIDERS: ATTEND Student in an Organized Health Care Education/Training Program
DX: Z02.1 Encounter for pre-employment examination (principal)
CPT/HCPCS: 36415; 86480; 86735; 86762; 86765

== ENCOUNTER 2021-05-22 16:34 | Outpatient (CLI) | payer MEDICAID | END 2021-05-22 16:35 | disposition home or self-care (01) | LOC: COV 16:34 | PROVIDERS: ATTEND Internal Medicine Gastroenterology | DX: Z01.812 Encounter for preprocedural laboratory examination (principal); Z20.822 Contact with and (suspected) exposure to COVID-19 ==

== ENCOUNTER 2021-07-03 10:28 | Emergency (ER) | payer MEDICAID ==
--- NOTE | 2021-07-03 13:06 | ED Physician Documentation ---
PD HPI URI - Stated complaint Stated Complaint: COUGH, CHEST CONGESTION - Chief complaint Chief Complaint: Resp - History obtained from History obtained from: Patient - History of Present Illness Timing - onset: How many days ago (5) Timing duration: Days (5) Timing details: Gradual onset, Still present Associated symptoms: Fever, Chills, Nasal congestion, Sore throat, Dry cough, Dyspnea. No: NVD, Bilateral edema Contributing factors: Sick contact (Several members of her [employer] have tested positive for Covid with similar symptoms.), Unimmunized. No: COPD / asthma Similar symptoms before: Has not had sx before Recently seen: Not recently seen Review of Systems Constitutional: reports: Fever, Chills, Myalgias Nose: reports: Congestion Throat: reports: Sore throat Respiratory: reports: Cough PD PAST MEDICAL HISTORY - Past Medical History Past Medical History: Yes Cardiovascular: High cholesterol, Murmur, Valve disorder Respiratory: None Neuro: None Endocrine/Autoimmune: None GI: Diverticulitis COST ACCOUNTANT: None : None HEENT: None Psych: Depression Musculoskeletal: None Derm: None - Past Surgical History Past Surgical History: Yes General: Colonoscopy - Present Medications Home Medications: Ambulatory Orders Medication Instructions Recorded Confirmed Ascorbic Acid [Vitamin C] 2,000 mg PO DAILY 05/11/21 07/03/21 Sertraline HCl 100 mg PO DAILY 05/11/21 07/03/21 Albuterol Sulf [Ventolin Hfa 2 - 3 puffs INH Q4HR PRN #1 inhaler 07/03/21 Inhaler] Amoxicillin 500 mg PO TID #15 cap 07/03/21 Benzonatate [Tessalon] 100 mg PO TID PRN #20 cap 07/03/21 dexAMETHasone [Decadron] 4 mg PO DAILY #5 tablet 07/03/21 - Allergies Allergies/Adverse Reactions: Allergies Allergy/AdvReac Type Severity Reaction Status Date / Time No Known Drug Allergies Allergy Verified 06/08/21 13:19 - Social History Does the pt smoke?: No Smoking Status: Never smoker Does the pt drink ETOH?: Yes Does the pt have substance abuse?: No - Immunizations Immunizations are current?: Yes - POLST Patient has POLST: No PD ED PE NORMAL - Vitals Vital signs reviewed: Yes - General General: Alert and oriented X 3, Well developed/nourished, Other (appears uncomfortable) - HEENT HEENT: Ears normal, Moist mucous membranes, Pharynx benign, Other (some nasal congestion. ) - Neck Neck: Supple, no meningeal sign, No adenopathy - Cardiac Cardiac: RRR, No murmur - Respiratory Respiratory: No: Clear bilaterally (no coarse sounds, but does have diffuse exp scattered wheezing. ) - Abdomen Abdomen: Soft, Non tender - Derm Derm: Normal color, Warm and dry, No rash - Extremities Extremities: No edema, No calf tenderness / cord - Neuro Neuro: Alert and oriented X 3, No motor deficit, Normal speech Results - Vitals Vitals: Oxygen O2 Source Room air - Labs Labs: Laboratory Tests 07/03/21 12:35 Coronavirus (PCR) POSITIVE PD MEDICAL DECISION MAKING - ED course Complexity details: re-evaluated patient (Sats are adwquate. Offered MAB therapy if her test results positive, and she declined. ), considered differential (seems likely viral URI and with her exposure to COVID at [employer] and unimmunized, most likely will be COVID. ), d/w patient Departure - Departure Disposition: 01 Home, Self Care Clinical Impression: Exposure to COVID-19 virus Upper respiratory infection Qualifiers: URI type: unspecified URI Qualified Code(s): J06.9 - Acute upper respiratory infection, unspecified Dyspnea Qualifiers: Dyspnea type: shortness of breath Qualified Code(s): R06.02 - Shortness of breath Condition: Stable Record reviewed to determine appropriate education?: Yes Instructions: ED Upper Resp Infec Abx Tx Follow-Up: FELA MOMIN, [Primary Care Provider] - Prescriptions: Albuterol Sulf [Ventolin Hfa Inhaler] 2 - 3 puffs INH Q4HR PRN #1 inhaler PRN Reason: Shortness Of Air/Wheezing Amoxicillin 500 mg PO TID #15 cap dexAMETHasone [Decadron] 4 mg PO DAILY #5 tablet Benzonatate [Tessalon] 100 mg PO TID PRN #20 cap PRN Reason: Cough Comments: Your chest x-ray is clear without any signs of pneumonia at this time. Your illness would be concerning for Covid, given your exposures. However it is possible to be other respiratory infections instead. Your Covid test should result in the next day or 2. Use the albuterol inhaler 2 to 3 puffs 4 times a day for the next week or so to help with breathing and have less cough and shortness of breath. Decadron steroid daily for 5 more days to help with inflammation of the airways. Add Tessalon if needed for cough. Tylenol if needed for fevers or pains. Given your symptoms, other consideration besides viral illness would be acute bronchitis so we can treat with amoxicillin antibiotic as directed. Recheck if worsening over the next few days otherwise expect some illness shortness of breath in general malaise over the next several days to week or more still. You have a Covid test pending. You need to self quarantine until the result is done and negative. Do not leave your house. Do not get near anybody. The results should be done in 48 to 72 hours, but sometimes longer. We will call with a positive result, the fastest way to get a negative result for confirmation though is to go to the hospital website at [email or web address], click on the my [employer] tab and sign up for the patient portal. If any friends or family get sick and would like to have a Covid test done, but do not have signs or symptoms that would necessitate being hospitalized, we encourage testing through our coronavirus swabbing station, call [phone] to schedule an appointment. Discharge Date/Time: 07/03/21 15:19
[2021-07-03] MEDS ORDERED: DEXAMETHASONE 10 MG/ML VIAL PO STA (13:40)
[2021-07-03] MEDS ORDERED: BENZONATATE 100 MG CAPSULE PO STA (13:40)
[2021-07-03] MEDS ORDERED: CHERRY SYRUP 10 ML UDC PO ONE (13:40)
[2021-07-03] MEDS ORDERED: ALBUTEROL 1 PUFF INH STA (13:40)
--- NOTE | 2021-07-03 14:04 | XRAY Report ---
PROCEDURE: Chest 1 View X-Ray INDICATIONS: chest pain TECHNIQUE: One view of the chest was acquired. COMPARISON: 05/15/2021. FINDINGS: Surgical changes and devices: None. Lungs and pleura: No pleural effusions or pneumothorax. Lungs are clear. Mediastinum: Mediastinal contours appear normal. Heart size is normal. Bones and chest wall: No suspicious bony lesions. Overlying soft tissues appear unremarkable. IMPRESSION: No acute cardiopulmonary disease process. Reviewed by: Susan Chauhan MD, PhD on 07/03/2021 2:03 PM PDT Approved by: Susan Chauhan MD, PhD on 07/03/2021 2:03 PM PDT Station ID: [id number]
[2021-07-03 15:09] VITALS: BP 114/77
== END 2021-07-03 15:19 | disposition home or self-care (01) ==
LOC: ED 10:28
DX: U07.1 COVID-19 (principal); R06.02 Shortness of breath; I38 Endocarditis, valve unspecified; F32.9 Major depressive disorder, single episode, unspecified; Z79.899 Other long term (current) drug therapy
CPT/HCPCS: 71045; 87635; 94640; 99284; A9270

== ENCOUNTER 2021-07-19 14:29 | Outpatient (CLI) | payer MEDICAID ==
--- NOTE | 2021-07-20 13:39 | Mammography Report ---
BILATERAL DIGITAL SCREENING MAMMOGRAM 3D/2D: 07/19/2021 CLINICAL: Routine screening. Comparison is made to exams dated: 05/17/2020 mammogram, 04/13/2018 mammogram, 03/11/2017 mammogram, mammogram, 03/11/2015 ultrasound, and 12/31/2013 mammogram - [facility]. The tissue of both breasts is heterogeneously dense. This may lower the sensitivity of mammography. No significant masses, calcifications, or other findings are seen in either breast. There has been no significant interval change. IMPRESSION: NEGATIVE There is no mammographic evidence of malignancy. A 1 year screening mammogram is recommended. This exam was interpreted at Station ID: [id number]. NOTE: For mammograms, a report in lay terms will be sent to the patient. Approximately 15% of breast malignancies will not be visualized mammographically. In the management of a palpable breast mass, a negative mammogram must not discourage biopsy of a clinically suspicious lesion. Electronically Signed By: Luis Concepcion M.D. attroy/raúl:07/19/2021 15:49:00 ACR BI-RADS Category 1: Negative 3341F PARENCHYMAL PATTERN: (D) - The breast(s) demonstrate(s) heterogeneously dense fibroglandular kate ramos. BI-RADS CATEGORY: (1) - 1 RECOMMENDATION: (ANNUAL) - Recommend routine annual screening mammography. [id number] 1 year screening LATERALITY: (B)
== END 2021-07-19 14:30 | disposition home or self-care (01) ==
LOC: DI 14:29
PROVIDERS: ATTEND Student in an Organized Health Care Education/Training Program
DX: Z12.31 Encounter for screening mammogram for malignant neoplasm of breast (principal)

== ENCOUNTER 2022-04-25 06:00 | Outpatient (CLI) | payer MEDICAID ==
--- NOTE | 2022-04-25 18:18 | XRAY Report ---
PROCEDURE: Knee 4 View BILAT INDICATIONS: BILAT KNEE PAIN TECHNIQUE: 4 views of the bilateral knee(s) were acquired. COMPARISON: None. FINDINGS: Bones: No fractures or dislocations. Mild to moderate bilateral medial femoral tibial compartment o steoarthritic changes are seen with joint space narrowing and subchondral sclerosis. No patella sublu xation. No suspicious bony lesions. Soft tissues: Small bilateral suprapatellar joint effusion is seen. No suspicious soft tissue calcif ications. IMPRESSION: Symmetric appearing mild to moderate bilateral medial femoral tibial compartment osteoar thritis. Small bilateral joint effusion. No fracture or dislocation. Reviewed by: Nasim Lezama MD on 04/25/2022 6:17 PM PDT Approved by: Nasim Lezama MD on 04/25/2022 6:17 PM PDT Station ID: [id number]
== END 2022-04-25 23:59 | disposition home or self-care (01) ==
LOC: DI.WOS 06:00
PROVIDERS: ATTEND Orthopaedic Surgery
DX: M71.21 Synovial cyst of popliteal space [Baker], right knee (principal); M71.22 Synovial cyst of popliteal space [Baker], left knee; M17.0 Bilateral primary osteoarthritis of knee; M25.462 Effusion, left knee; M25.461 Effusion, right knee

== ENCOUNTER 2022-04-25 10:40 | Outpatient (CLI) | payer MEDICAID ==
--- NOTE | 2022-04-25 16:14 | XRAY Report ---
PROCEDURE: Cervical Spine w/Flex/Ext INDICATIONS: LOCALIZED SWELLING MASS OR LUMP TECHNIQUE: 3 views of the cervical spine including flexion and extension views were acquired. COMPARISON: None. FINDINGS: Bones: No fractures or dislocations to the T1 level. No suspicious bony lesions. There is normal r snehal of motion between flexion and extension, with preserved normal bony alignment. Moderate C3-C4, C 4-C5 and C5-C6 and C6-7 C7 degenerative disc disease. Mild facet hypertrophy noted throughout the cer vical spine. Soft tissues: Prevertebral soft tissues are normal in thickness. IMPRESSION: 1. Multilevel degenerative disc disease. 2. Multilevel facet arthropathy. 3. No acute osseous lesion. If there is continued clinical concern for pathology, then MRI should be considered for further evaluation. Reviewed by: Susan Chauhan MD, PhD on 04/25/2022 4:13 PM PDT Approved by: Susan Chauhan MD, PhD on 04/25/2022 4:13 PM PDT Station ID: [id number]
== END 2022-04-25 10:41 | disposition home or self-care (01) ==
LOC: DI 10:40
PROVIDERS: ATTEND Internal Medicine
DX: M50.31 Other cervical disc degeneration, high cervical region (principal); M47.812 Spondylosis without myelopathy or radiculopathy, cervical region

== ENCOUNTER 2022-05-23 11:11 | Outpatient (CLI) | payer MEDICAID ==
[~2022-05-23 11:11] MED LIST: lidocaine 1% 20 ML MDV ONE
[2022-05-23] MEDS ORDERED: lidocaine 1% 20 ML MDV SUBQ ONE (12:15)
--- NOTE | 2022-05-23 15:18 | Ultrasound Report ---
PROCEDURE: Ultrasound guided aspiration of a left popliteal cyst. INDICATIONS: LEFT POPLITEAL CYST TECHNIQUE: The indications, alternatives, benefits, risks, and complications of the procedure were explained to the patient. Written informed consent was obtained and placed in the chart. The area of interest wa s examined sonographically and a site was chosen for ultrasound guided percutaneous sampling. The sk in was prepared and draped in the usual fashion, and anesthetized with 1% lidocaine infiltrated from the skin down to the lesion. Multiple passes were then performed, with contents emptied into an [facility] pathology specimen container. A bandage was applied to the area of access at completion of t he study. COMPARISON: None. FINDINGS: The skin over the popliteal area was prepped and draped in a sterile fashion. Then lidocaine was used to anesthetize the overlying soft tissue. 18-gauge needle was advanced into the popliteal cyst and the cyst was aspirated, aspirating approxima tely 30 mL's. IMPRESSION: Aspiration of a left popliteal cyst. Reviewed by: Jake Meraz on 05/23/2022 3:17 PM PDT Approved by: Jake Meraz on 05/23/2022 3:17 PM PDT Station ID: [id number]
== END 2022-05-23 11:12 | disposition home or self-care (01) ==
LOC: DI 11:11
PROVIDERS: ATTEND Orthopaedic Surgery
DX: M71.22 Synovial cyst of popliteal space [Baker], left knee (principal)
CPT/HCPCS: 10005

== ENCOUNTER 2022-08-01 13:07 | Outpatient (CLI) | payer MEDICAID ==
--- NOTE | 2022-08-02 08:05 | Mammography Report ---
BILATERAL DIGITAL SCREENING MAMMOGRAM 3D/2D: 08/01/2022 CLINICAL: Routine screening. Comparison is made to exams dated: 07/19/2021 mammogram, 05/17/2020 mammogram, 04/13/2018 mammogram, an d 03/11/2017 mammogram - [facility]. Both breasts are heterogeneously dense, which may obscure small masses (category c / 51-75% glandula r tissue). No significant masses, calcifications, or other findings are seen in either breast. There has been no significant interval change. IMPRESSION: NEGATIVE There is no mammographic evidence of malignancy. A 1 year screening mammogram is recommended. Based on the Tyrer Cuzick model (a risk assessment model) the patients lifetime risk is 12.1% and he r 10 year risk is 4.7%. According to the ACR, ACS, and NCCN guidelines, an annual breast MRI exam jeanie ng with mammogram is recommended if the patients lifetime risk is 20% or greater. This exam was interpreted at Station ID: [id number]. NOTE: For mammograms, a report in lay terms will be sent to the patient. Approximately 15% of breast malignancies will not be visualized mammographically. In the management of a palpable breast mass, a negative mammogram must not discourage biopsy of a clinically suspicious lesion. Electronically Signed By: Jovon junior/raúl:08/01/2022 14:06:32 ACR BI-RADS Category 1: Negative 3341F PARENCHYMAL PATTERN: (D) - The breast(s) demonstrate(s) heterogeneously dense fibroglandular kate ramos. BI-RADS CATEGORY: (1) - 1 RECOMMENDATION: (ANNUAL) - Recommend routine annual screening mammography. [id number] 1 year screening LATERALITY: (B)
== END 2022-08-01 13:08 | disposition home or self-care (01) ==
LOC: DI 13:07
PROVIDERS: ATTEND Student in an Organized Health Care Education/Training Program
DX: Z12.31 Encounter for screening mammogram for malignant neoplasm of breast (principal)

== ENCOUNTER 2022-08-15 11:17 | Emergency (ER) | payer MEDICAID ==
--- OUTSIDE RECORDS SUMMARY | 2022-08-15 11:24 | EXTERNAL MEDICAL SUMMARY RPT | Continuity of Care Document ---
:1965 Author Organization [place] Address [address] [place] [address] Phone Allergies No information. Encounters No information. Functional Status No information. Immunizations No information. Medications No information. Problems No information. Procedures No information. Results/Labs test date author facility value unit interpret ation Result panel 1 (unknown) (no (unknown) (unknown) (no value) (units (unk nown) date) unknown) (unknown) (no (unknown) (unknown) 07/24/22 (units (unkno wn) date) unknown) (unknown) (no (unknown) (unknown) [address] [place] [address] (units (unknown) date) unknown) (unknown) (no (unknown) (unknown) Accession (units (unkn own) date) Number: unknown) [id number] (unknown) (no (unknown) (unknown) Age/Sex: 57 / F (units (unknown) date) Date of Service: unknown) (unknown) (no (unknown) (unknown) Alignment and (units ( unknown) date) Curvature: There unknown) is normal bony alignment. (unknown) (no (unknown) (unknown) [place], [place] (units ( unknown) date) [id number] unknown) (unknown) (no (unknown) (unknown) Approved by: (units (u nknown) date) rosie Interiano M.D. on 07/25/2022 at 15:22 (unknown) (no (unknown) (unknown) Bone Marrow: (units (u nknown) date) Marrow unknown) demonstrates normal overall signal. (unknown) (no (unknown) (unknown) C2-C3: No spinal (units (unknown) date) canal or neural unknown) foraminal stenosis. (unknown) (no (unknown) (unknown) C3-C4: No spinal (units (unknown) date) canal or neural unknown) foraminal stenosis. (unknown) (no (unknown) (unknown) C4-C5: No spinal (units (unknown) date) canal stenosis. unknown) Facet and uncovertebral hypertrophy combine (unknown) (no (unknown) (unknown) C5-C6: Posterior (units (unknown) date) disc osteophyte unknown) complex flattens the ventral thecal sac (unknown) (no (unknown) (unknown) C6-C7: Posterior (units (unknown) date) disc osteophyte unknown) complex without mass effect upon the cord. (unknown) (no (unknown) (unknown) C7-T1: No spinal (units (unknown) date) canal or neural unknown) foraminal stenosis. (unknown) (no (unknown) (unknown) C7. (units (unkno wn) date) unknown) (unknown) (no (unknown) (unknown) COMPARISON: (units (un known) date) None. unknown) (unknown) (no (unknown) (unknown) : 1965 (units (unknown) date) Acct:[id number] unknown) (unknown) (no (unknown) (unknown) Dictated by: (units (u nknown) date) rosie Interiano M.D. on 07/25/2022 at 15:20 (unknown) (no (unknown) (unknown) FINDINGS: (units (unkn own) date) unknown) (unknown) (no (unknown) (unknown) IMPRESSION: (units (un known) date) unknown) (unknown) (no (unknown) (unknown) INDICATIONS: (units (u nknown) date) CHRONIC NECK PAIN unknown) (unknown) (no (unknown) (unknown) Image quality: (units (unknown) date) Excellent. unknown) (unknown) (no (unknown) (unknown) [facility] (units (unknown) date) unknown) (unknown) (no (unknown) (unknown) Loc: MRI (units (unkno wn) date) unknown) (unknown) (no (unknown) (unknown) [id number] (units (unk nown) date) unknown) (unknown) (no (unknown) (unknown) Magnetic (units (unkno wn) date) Resonance Report unknown) (unknown) (no (unknown) (unknown) Moderate to (units (un known) date) severe neural unknown) foraminal stenosis bilaterally from C4-C5 through C6 (unknown) (no (unknown) (unknown) Moderate to (units (un known) date) unknown) (unknown) (no (unknown) (unknown) Noncontrast (units (un known) date) sagittal T1 spin unknown) echo and T2 fast spin echo, sagittal STIR, (unknown) (no (unknown) (unknown) Ordering (units (unkno wn) date) Provider: unknown) Lalita Choi D.O. (unknown) (no (unknown) (unknown) PROCEDURE: MR (units ( unknown) date) CERVICAL SPINE WO unknown) CON (unknown) (no (unknown) (unknown) Patient: (units (unkno wn) date) ANASTASIA DANIELS L unknown) MR#: (unknown) (no (unknown) (unknown) Procedure: MR (units ( unknown) date) cervical spine wo unknown) con (unknown) (no (unknown) (unknown) [facility] Soft (units ( unknown) date) Tissues: No unknown) paravertebral masses. Prevertebral soft tissues are (unknown) (no (unknown) (unknown) Signed (units (unkno wn) date) unknown) (unknown) (no (unknown) (unknown) Spinal Cord: (units (u nknown) date) Visualized spinal unknown) cord has normal size and signal. No cerebellar (unknown) (no (unknown) (unknown) TECHNIQUE: (units (unk nown) date) unknown) (unknown) (no (unknown) (unknown) cervical spine. (units (unknown) date) unknown) (unknown) (no (unknown) (unknown) effect upon the (units (unknown) date) cord. Facet and unknown) uncovertebral hypertrophy combine to produce (unknown) (no (unknown) (unknown) foraminal (units (unkn own) date) oblique unknown) (unknown) (no (unknown) (unknown) herniation. (units (un known) date) unknown) (unknown) (no (unknown) (unknown) moderate to (units (un known) date) unknown) (unknown) (no (unknown) (unknown) moderate-severe (units (unknown) date) bilateral neural unknown) foraminal narrowing. (unknown) (no (unknown) (unknown) normal in (units (unkn own) date) unknown) (unknown) (no (unknown) (unknown) sagittal T2 fast (units (unknown) date) spin echo, and unknown) axial gradient echo or T2 fast spin echo (unknown) (no (unknown) (unknown) severe bilateral (units (unknown) date) neural foraminal unknown) stenosis. (unknown) (no (unknown) (unknown) severe neural (units ( unknown) date) foraminal unknown) narrowing due to facet and uncovertebral hypertrophy. (unknown) (no (unknown) (unknown) thickness. (units (unk nown) date) unknown) (unknown) (no (unknown) (unknown) through the (units (un known) date) unknown) (unknown) (no (unknown) (unknown) to produce (units (unk nown) date) unknown) (unknown) (no (unknown) (unknown) tonsillar (units (unkn own) date) unknown) (unknown) (no (unknown) (unknown) without mass (units (u nknown) date) unknown) Result panel 2 (unknown) (no (unknown) (unknown) (no value) (units (unk nown) date) unknown) (unknown) (no (unknown) (unknown) (04/20). Possibly (units (unknown) date) this osteophyte unknown) could represent the palpable abnormality, (unknown) (no (unknown) (unknown) ADDENDUM (units (u nknown) date) unknown) (unknown) (no (unknown) (unknown) 0.4 cm, (units (unkno wn) date) unknown) (unknown) (no (unknown) (unknown) 07/31/22 (units (unkno wn) date) unknown) (unknown) (no (unknown) (unknown) 1. Uncovertebral (units (unknown) date) joint arthropathy unknown) associated with moderate to severe bilateral (unknown) (no (unknown) (unknown) [address] [place] [address] (units (unknown) date) unknown) (unknown) (no (unknown) (unknown) ADDENDUM: (units (unkn own) date) unknown) (unknown) (no (unknown) (unknown) Accession Number: (units (unknown) date) [id number] unknown) (unknown) (no (unknown) (unknown) Addendum Cosigned (units (unknown) date) By: unknown) (unknown) (no (unknown) (unknown) Addendum Dictated (units (unknown) date) By: Antwon W unknown) MD Ricardo (unknown) (no (unknown) (unknown) Addendum Dictated (units (unknown) date) By: Jovon Cui MD unknown) (unknown) (no (unknown) (unknown) Addendum Signed (units (unknown) date) By: unknown) (unknown) (no (unknown) (unknown) Addendum (units (unkno wn) date) unknown) (unknown) (no (unknown) (unknown) Age/Sex: 57 / F (units (unknown) date) Date of Service: unknown) (unknown) (no (unknown) (unknown) Agree with the (units (unknown) date) above report. unknown) (unknown) (no (unknown) (unknown) [place] Mak (units ( unknown) date) [id number] unknown) (unknown) (no (unknown) (unknown) Approved by: Antwon (units (unknown) date) Kvng Silva on unknown) 07/31/2022 at 18:31 (unknown) (no (unknown) (unknown) Approved by: Antwon (units (unknown) date) Kvng Silva on unknown) 08/02/2022 at 11:19 (unknown) (no (unknown) (unknown) Approved by: (units (u nknown) date) Jovon Cui M.D. unknown) on 08/12/2022 at 14:14 (unknown) (no (unknown) (unknown) At C4-5, there is (units (unknown) date) disc space unknown) narrowing present. Hypertrophic uncovertebral (unknown) (no (unknown) (unknown) At C5-6, disc (units ( unknown) date) space narrowing unknown) present. Osseous central canal is widely patent. (unknown) (no (unknown) (unknown) At C6-7, disc (units ( unknown) date) space narrowing unknown) and small posterior osteophyte present with mild (unknown) (no (unknown) (unknown) Bones: Normal (units ( unknown) date) bone unknown) mineralization. Vertebral body height alignment is (unknown) (no (unknown) (unknown) C2 and C3 are not (units (unknown) date) fractured, and unknown) there is no 'micro facet fracture' of C1-2 or (unknown) (no (unknown) (unknown) C3-4. (units (unkno wn) date) unknown) (unknown) (no (unknown) (unknown) COMPARISON: (units (un known) date) [facility], unknown) MR, MR CERVICAL SPINE WO CON, 07/24/2022, 17:35. (unknown) (no (unknown) (unknown) CT Scan Report (units (unknown) date) unknown) (unknown) (no (unknown) (unknown) DD/DT: (units (unkno wn) date) 08/02/2208/15/1219 unknown) (unknown) (no (unknown) (unknown) DD/DT: (units (unkno wn) date) 08/12/22 unknown) (unknown) (no (unknown) (unknown) : 1965 (units (unknown) date) Acct:[id number] unknown) (unknown) (no (unknown) (unknown) Dictated by: (units (u nknown) date) Jovon Cui M.D. unknown) on 08/12/2022 at 14:08 (unknown) (no (unknown) (unknown) FINDINGS: (units (unkn own) date) unknown) (unknown) (no (unknown) (unknown) Hypertrophic (units (u nknown) date) uncovertebral unknown) joints associated with moderate to severe bilateral (unknown) (no (unknown) (unknown) IMPRESSION: (units (un known) date) unknown) (unknown) (no (unknown) (unknown) INDICATIONS: (units (u nknown) date) Cervicalgia unknown) (unknown) (no (unknown) (unknown) Image quality: (units (unknown) date) Excellent. unknown) (unknown) (no (unknown) (unknown) [facility] (units (unknown) date) unknown) (unknown) (no (unknown) (unknown) Loc: CT (units (unkno wn) date) unknown) (unknown) (no (unknown) (unknown) [id number] (units (unk nown) date) unknown) (unknown) (no (unknown) (unknown) Moderate to (units (un known) date) severe unknown) degenerative change in the cervical spine. (unknown) (no (unknown) (unknown) Noncontrast 3 mm (units (unknown) date) thick sections unknown) acquired from the skull base to the T4 level. (unknown) (no (unknown) (unknown) Ordering (units (o wn) date) Provider: unknown) Lalita Choi D.O. (unknown) (no (unknown) (unknown) PROCEDURE: CT (units ( unknown) date) CERVICAL SPINE WO unknown) CON (unknown) (no (unknown) (unknown) Patient: (units (o wn) date) ANASTASIA DANIELS L unknown) MR#: (unknown) (no (unknown) (unknown) Per request of (units (unknown) date) the patient images unknown) were again reviewed. (unknown) (no (unknown) (unknown) Posterolateral (units (unknown) date) skin marker at the unknown) level of C2-3 is not associated with CT (unknown) (no (unknown) (unknown) Procedure: CT (units ( unknown) date) cervical spine wo unknown) con (unknown) (no (unknown) (unknown) Sagittal (units (unkno wn) date) unknown) (unknown) (no (unknown) (unknown) Signed (units (unkno wn) date) unknown) (unknown) (no (unknown) (unknown) Skin marker left (units (unknown) date) posterior C2-C3 unknown) level. The patient reports a hard palpable (unknown) (no (unknown) (unknown) Soft tissues: (units ( unknown) date) Prevertebral soft unknown) tissues are normal in thickness. No (unknown) (no (unknown) (unknown) TD/TT: (units (o wn) date) 08/02/2208/15/1219 unknown) (unknown) (no (unknown) (unknown) TD/TT: (units (unkno wn) date) 08/12/22 unknown) (unknown) (no (unknown) (unknown) TECHNIQUE: (units (unk nown) date) unknown) (unknown) (no (unknown) (unknown) There is no CT (units (unknown) date) evidence of acute unknown) or chronic fracture throughout the exam. In (unknown) (no (unknown) (unknown) There is (units (unkno wn) date) straightening of unknown) the normal cervical lordosis. Craniovertebral (unknown) (no (unknown) (unknown) This report (units (un known) date) includes an unknown) Addendum and supersedes previous reports for this exam. (unknown) (no (unknown) (unknown) abnormality (units (un known) date) unknown) (unknown) (no (unknown) (unknown) abnormality. (units (u nknown) date) unknown) (unknown) (no (unknown) (unknown) although this (units ( unknown) date) unknown) (unknown) (no (unknown) (unknown) and coronal (units (un known) date) reformats were unknown) then constructed. For radiation dose reduction, the (unknown) (no (unknown) (unknown) are normal. (units (un known) date) unknown) (unknown) (no (unknown) (unknown) associated with (units (unknown) date) unknown) (unknown) (no (unknown) (unknown) body in this (units (u nknown) date) region. The unknown) posterior paraspinal musculature appears symmetric on (unknown) (no (unknown) (unknown) central (units (unkno wn) date) unknown) (unknown) (no (unknown) (unknown) following (units (unkn own) date) unknown) (unknown) (no (unknown) (unknown) foraminal (units (unkn own) date) unknown) (unknown) (no (unknown) (unknown) foreign (units (unkno wn) date) unknown) (unknown) (no (unknown) (unknown) hematomas. No (units ( unknown) date) apical unknown) pneumothoraces. (unknown) (no (unknown) (unknown) in this region. (units (unknown) date) Small osteophyte unknown) left posterior elements at C2-C3 measuring (unknown) (no (unknown) (unknown) is smaller and (units (unknown) date) deeper than unknown) expected would be palpable. There is ankylosis of (unknown) (no (unknown) (unknown) joints (units (unkno wn) date) unknown) (unknown) (no (unknown) (unknown) maintained. (units (un known) date) unknown) (unknown) (no (unknown) (unknown) moderate to (units (un known) date) severe bilateral unknown) foraminal stenosis. (unknown) (no (unknown) (unknown) noncontrast exam. (units (unknown) date) unknown) (unknown) (no (unknown) (unknown) paravertebral (units ( unknown) date) unknown) (unknown) (no (unknown) (unknown) particular, (units (un known) date) unknown) (unknown) (no (unknown) (unknown) patient (units (unkno wn) date) unknown) (unknown) (no (unknown) (unknown) posterior (units (unkn own) date) elements at C2-C3 unknown) on the left and C3-C4 on the right. No radiopaque (unknown) (no (unknown) (unknown) relationships (units ( unknown) date) unknown) (unknown) (no (unknown) (unknown) results in (units (unk nown) date) moderate to severe unknown) bilateral foraminal stenosis. (unknown) (no (unknown) (unknown) size. (units (unkno wn) date) unknown) (unknown) (no (unknown) (unknown) stenosis C4-5, (units (unknown) date) C5-6 and C6-7 unknown) (unknown) (no (unknown) (unknown) stenosis of the (units (unknown) date) osseous central unknown) canal. Hypertrophic uncovertebral joints (unknown) (no (unknown) (unknown) stenosis. (units (unkn own) date) unknown) (unknown) (no (unknown) (unknown) the (units (unkno wn) date) unknown) (unknown) (no (unknown) (unknown) this (units (unkno wn) date) unknown) (unknown) (no (unknown) (unknown) was used: (units (unkn own) date) automated exposure unknown) control, adjustment of mA and/or kV according to Social History No information. Vital Signs No information.
[2022-08-15 11:29] VITALS: BP 136/71
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
--- NOTE | 2022-08-15 12:54 | XRAY Report ---
PROCEDURE: Cervical Spine w/Flex/Ext INDICATIONS: feels like her neck is unstable TECHNIQUE: 5 views of the cervical spine were acquired. COMPARISON: 04/25/2022 FINDINGS: Bones: No fractures or dislocations to the T1 level. Trace retrolisthesis C4 on C5 in the neutral p osition. Trace C5-6 retrolisthesis. There is limited range of motion in flexion with straightening of the previously described alignment. There is normal range of motion in extension without pathologic subluxation beyond that seen in the neutral position. Moderate multilevel disc height loss, C4-5, C5-6, and C6-7. Minor posterior endplate spurs. Moderate facet arthropathy, particularly at C7-T1. Soft tissues: Prevertebral soft tissues are normal in thickness. IMPRESSION: 1. No changes compared to the prior recent study. 2. Trace retrolisthesis at the described levels without significant subluxation during flexion or ext ension. 3. Facet arthropathy most prominent at C7-T1 level. 4. Multilevel disc degeneration. Reviewed by: Vaishali Pavon MD on 08/15/2022 12:52 PM PDT Approved by: Vaishali Pavon MD on 08/15/2022 12:52 PM PDT Station ID: [id number]
--- NOTE | 2022-08-16 19:18 | ED Physician Documentation ---
ED Addendum - Addendum Addendum: 08/16/22 19:18 Patient called and had multiple questions about her x-ray. She seems to be convinced that her spine is unstable or there is a loose foreign body in there despite the normal x-rays. I spent quite some time on the phone with her but most likely she does seem to be psycho somatizing this. I encouraged her to return if she feels worse as we could consider a repeat CT mostly to reassure her.
== END 2022-08-15 13:12 | disposition home or self-care (01) ==
LOC: ED 11:17
DX: M54.2 Cervicalgia (principal)
CPT/HCPCS: 99282; 99283

== ENCOUNTER 2022-08-17 09:32 | Emergency (ER) | payer MEDICAID ==
[2022-08-17 09:56] VITALS: BP 144/67
--- OUTSIDE RECORDS SUMMARY | 2022-08-17 10:03 | EXTERNAL MEDICAL SUMMARY RPT | Continuity of Care Document ---
:1965 Author Organization [facility] Address [address] [place] [address] Phone Allergies No information. Encounters No information. Functional Status No information. Immunizations No information. Medications No information. Problems No information. Procedures No information. Results/Labs test date author facility value unit interpret ation Result panel 1 (unknown) (no (unknown) (unknown) (no value) (units (unk nown) date) unknown) (unknown) (no (unknown) (unknown) 07/24/22 (units (unkno wn) date) unknown) (unknown) (no (unknown) (unknown) [address] [place] [address] (units (unknown) date) unknown) (unknown) (no (unknown) (unknown) Accession (units (unkn own) date) Number: unknown) [id number] (unknown) (no (unknown) (unknown) Age/Sex: 57 / F (units (unknown) date) Date of Service: unknown) (unknown) (no (unknown) (unknown) Alignment and (units ( unknown) date) Curvature: There unknown) is normal bony alignment. (unknown) (no (unknown) (unknown) [facility] Mak (units ( unknown) date) [id number] unknown) (unknown) (no (unknown) (unknown) Approved by: [...] (unknown) (unknown) : 1965 (units (unknown) date) Acct:[id number] unknown) (unknown) (no (unknown) (unknown) Dictated by: [...] date) Excellent. unknown) (unknown) (no (unknown) (unknown) [facility] (units (unknown) date) unknown) (unknown) (no (unknown) (unknown) Loc: MRI (units (unkno wn) date) unknown) (unknown) (no (unknown) (unknown) [id number] (units (unk nown) date) unknown) (unknown) (no [...] severe bilateral (unknown) (no (unknown) (unknown) [address] [place] [address] (units (unknown) date) unknown) (unknown) (no (unknown) (unknown) ADDENDUM: (units (unkn own) date) unknown) (unknown) (no (unknown) (unknown) Accession Number: (units (unknown) date) [id number] unknown) (unknown) (no (unknown) (unknown) Addendum Cosigned [...] (unknown) [facility] Mak (units ( unknown) date) [id number] unknown) (unknown) (no (unknown) (unknown) Approved by: [...] (unknown) (unknown) COMPARISON: (units (un known) date) [facility], unknown) MR, MR CERVICAL SPINE WO CON, 07/24/2022, 17:35. (unknown) (no (unknown) (unknown) CT Scan Report (units (unknown) date) unknown) (unknown) (no (unknown) (unknown) DD/DT: (units (unkno wn) date) 08/02/2208/15/1219 unknown) (unknown) (no (unknown) (unknown) DD/DT: (units (unkno wn) date) 08/12/22 unknown) (unknown) (no (unknown) (unknown) : 1965 (units (unknown) date) Acct:[id number] unknown) (unknown) (no (unknown) (unknown) Dictated by: [...] date) Excellent. unknown) (unknown) (no (unknown) (unknown) [facility] (units (unknown) date) unknown) (unknown) (no (unknown) (unknown) Loc: CT (units (unkno wn) date) unknown) (unknown) (no (unknown) (unknown) [id number] (units (unk nown) date) unknown) (unknown) (no (unknown) (unknown) Moderate to (units (un known) date) severe unknown) degenerative change in the cervical spine. (unknown) (no (unknown) (unknown) Noncontrast 3 mm (units (unknown) date) thick sections unknown) acquired from the skull base to the T4 level. (unknown) (no (unknown) (unknown) Ordering (units (unkno [...] No (unknown) (no (unknown) (unknown) TD/TT: (units (unkno wn) date) 08/02/2208/15/1219 unknown) (unknown) [...]
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
== END 2022-08-17 13:41 | disposition home or self-care (01) ==
LOC: ED 09:32
DX: M54.2 Cervicalgia (principal); M25.78 Osteophyte, vertebrae
CPT/HCPCS: 99281; 99282

== ENCOUNTER 2022-08-18 12:10 | Emergency (ER) | payer MEDICAID ==
--- OUTSIDE RECORDS SUMMARY | 2022-08-18 12:26 | EXTERNAL MEDICAL SUMMARY RPT | Continuity of Care Document ---
:1965 Author Organization [facility] Address [address] [place] [address] Phone Allergies No information. Encounters No information. Functional Status No information. Immunizations No information. Medications No information. Problems No information. Procedures No information. Results/Labs test date author facility value unit interpret ation Result panel 1 (unknown) (no (unknown) (unknown) (no value) (units (unk nown) date) unknown) (unknown) (no (unknown) (unknown) 07/24/22 (units (unkno wn) date) unknown) (unknown) (no (unknown) (unknown) [address] [place] [address] (units (unknown) date) unknown) (unknown) (no (unknown) (unknown) Accession (units (unkn own) date) Number: unknown) [id number] (unknown) (no (unknown) (unknown) Age/Sex: 57 / F (units (unknown) date) Date of Service: unknown) (unknown) (no (unknown) (unknown) Alignment and (units ( unknown) date) Curvature: There unknown) is normal bony alignment. (unknown) (no (unknown) (unknown) SHELBY Mka (units ( unknown) date) [id number] unknown) (unknown) (no (unknown) (unknown) Approved by: [...] (unknown) (unknown) : 1965 (units (unknown) date) Acct:[id number] unknown) (unknown) (no (unknown) (unknown) Dictated by: [...] date) Excellent. unknown) (unknown) (no (unknown) (unknown) [facility] (units (unknown) date) unknown) (unknown) (no (unknown) (unknown) Loc: MRI (units (unkno wn) date) unknown) (unknown) (no (unknown) (unknown) [id number] (units (unk nown) date) unknown) (unknown) (no [...] severe bilateral (unknown) (no (unknown) (unknown) [address] [place] [address] (units (unknown) date) unknown) (unknown) (no (unknown) (unknown) ADDENDUM: (units (unkn own) date) unknown) (unknown) (no (unknown) (unknown) Accession Number: (units (unknown) date) [id number] unknown) (unknown) (no (unknown) (unknown) Addendum Cosigned [...] (unknown) SHELBY Mak (units ( unknown) date) [id number] unknown) (unknown) (no (unknown) (unknown) Approved by: [...] (unknown) (unknown) COMPARISON: (units (un known) date) [facility], unknown) MR, MR CERVICAL SPINE WO CON, 07/24/2022, 17:35. (unknown) (no (unknown) (unknown) CT Scan Report (units (unknown) date) unknown) (unknown) (no (unknown) (unknown) DD/DT: (units (unkno wn) date) 08/02/2208/15/1219 unknown) (unknown) (no (unknown) (unknown) DD/DT: (units (unkno wn) date) 08/12/22 unknown) (unknown) (no (unknown) (unknown) : 1965 (units (unknown) date) Acct:[id number] unknown) (unknown) (no (unknown) (unknown) Dictated by: [...] date) Excellent. unknown) (unknown) (no (unknown) (unknown) [facility] (units (unknown) date) unknown) (unknown) (no (unknown) (unknown) Loc: CT (units (unkno wn) date) unknown) (unknown) (no (unknown) (unknown) [id number] (units (unk nown) date) unknown) (unknown) (no [...]
[2022-08-18 12:44] VITALS: BP 148/96
--- NOTE | 2022-08-18 13:51 | CT Report ---
PROCEDURE: CERVICAL SPINE WO INDICATIONS: NECK PAIN TECHNIQUE: Noncontrast 3 mm thick sections acquired from the skull base to the T4 level. Sagittal and coronal r eformats were then constructed. For radiation dose reduction, the following was used: automated exp osure control, adjustment of mA and/or kV according to patient size. COMPARISON: Correlation is made with cervical spine radiograph, 08/15/2022 FINDINGS: Image quality: This study is limited by quantum mottle artifact. Bones: No fractures or dislocations. Visualized superior ribs are intact. Degenerative changes are seen, with mild to moderate disc space narrowing at C3-C4, with at least mod erate disc space narrowing at C4-C5, C5-C6, and C6-C7. Posteriorly directed endplate osteophytes can be seen inferiorly. Soft tissues: Prevertebral soft tissues are normal in thickness. No paravertebral hematomas. No ap ical pneumothoraces. IMPRESSION: No acute CT abnormality is identified. Cervical spine degenerative changes are seen, which are worst inferiorly. If it would be helpful for clinical management decision making, please consider a dedicated cervical spine MRI for further evaluation (assuming that there is no contraindication). Reviewed by: Tad Grady MD on 08/18/2022 12:50 PM MIROSLAVA Approved by: Tad Grady MD on 08/18/2022 12:50 PM MIROSLAVA Station ID: [id number]
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
== END 2022-08-18 14:34 | disposition home or self-care (01) ==
LOC: ED 12:10
DX: M54.2 Cervicalgia (principal)
CPT/HCPCS: 99282; 99284

== ENCOUNTER 2022-10-28 09:50 | Outpatient (CLI) | payer MEDICAID ==
[2022-10-28 10:05] LABS: BASOPHILS % (AUTO) 1.1 %; EOSINOPHILS # (AUTO) 0.1 10^3/uL (0.0-0.7); EOSINOPHILS % (AUTO) 1.6 %; HCT - HEMATOCRIT 46.4 % (37.0-47.0); HGB - HEMOGLOBIN 14.9 g/dL (12.0-16.0); LYMPHOCYTES # (AUTO) 1.4 10^3/uL (1.5-3.5); LYMPHOCYTES % (AUTO) 38.3 %; MEAN CORPUSCULAR HEMOGLOBIN 28.3 pg (27.0-31.0); MEAN CORPUSCULAR HGB CONC 32.1 g/dL (32.0-36.0); MEAN CORPUSCULAR VOLUME 88.2 fL (81.0-99.0); MEAN PLATELET VOLUME 9.7 fL (7.9-10.8); MONOCYTES # (AUTO) 0.3 10^3/uL (0.0-1.0); MONOCYTES % (AUTO) 7.1 %; NEUTROPHILS # (AUTO) 1.9 10^3/uL (1.5-6.6); NEUTROPHILS % (AUTO) 51.6 %; PLT - PLATELET COUNT 231 10^3/uL (130-450); RED BLOOD COUNT 5.26 10^6/uL (4.20-5.40); RED CELL DISTRIBUTION WIDTH 13.1 % (12.0-15.0); WHITE BLOOD COUNT 3.7 x10^3/uL (4.8-10.8)
[2022-10-28 10:25] LABS: ALBUMIN 4.5 g/dL (3.2-5.5); ALBUMIN/GLOBULIN RATIO 1.3 (1.0-2.2); ALKALINE PHOSPHATASE 67 IU/L (42-121); ALT ALANINE AMINOTRANSFERASE 24 IU/L (10-60); AST ASPARTATE AMINOTRANSFERASE 29 IU/L (10-42); BILIRUBIN,TOTAL 0.8 mg/dL (0.2-1.0); BUN - BLOOD UREA NITROGEN 16 mg/dL (6-20); CALCIUM 9.6 mg/dL (8.5-10.3); CARBON DIOXIDE - CO2 30 mmol/L (21-32); CHLORIDE 98 mmol/L (101-111); CHOLESTEROL 293 mg/dL; CREATININE 0.6 mg/dL (0.4-1.0); GFR - MDRD 102 (>89); GLUCOSE 105 mg/dL (70-100); HDL CHOLESTEROL 98 mg/dL; LDL CHOLESTEROL,CALCULATED 183 mg/dL; LDL/HDL RATIO 1.9 (<4.4); POTASSIUM 4.3 mmol/L (3.5-5.0); SODIUM 139 mmol/L (135-145); TRIGLYCERIDES 59 mg/dL; VLDL CHOLESTEROL 12 mg/dL
[2022-10-28 11:04] LABS: CRP - C-REACTIVE PROTEIN < 1.0 mg/dL (0-1.0)
[2022-10-29 04:09] LABS: VITAMIN D 25-HYDROXY 37.4 ng/mL (30.0-100.0)
[2022-10-29 16:08] LABS: ANTI-DNA (DS) AB QN <1 IU/mL (0-9); CENTROMERE B ANTIBODIES <0.2 AI (0.0-0.9); CHROMATIN ANTIBODIES <0.2 AI (0.0-0.9); JO-1 AB <0.2 AI (0.0-0.9); RIBOSOMAL P ANTIBODIES <0.2 AI (0.0-0.9); RNP ANTIBODIES <0.2 AI (0.0-0.9); SCLERODERMA-70 ANTIBODIES <0.2 AI (0.0-0.9); SJOGREN'S ANTI-SS-A <0.2 AI (0.0-0.9); SJOGREN'S ANTI-SS-B <0.2 AI (0.0-0.9); SMITH ANTIBODIES <0.2 AI (0.0-0.9); SMITH/RNP ANTIBODIES <0.2 AI (0.0-0.9)
== END 2022-10-28 09:51 | disposition home or self-care (01) ==
LOC: LAB 09:50
PROVIDERS: ATTEND Internal Medicine
DX: F32.A Depression, unspecified (principal); F41.1 Generalized anxiety disorder; R00.2 Palpitations
CPT/HCPCS: 36415; 80053; 80061; 82306; 83721; 84443; 85025; 85651; 86140; 86225; 86235

== ENCOUNTER 2023-02-18 10:03 | Outpatient (CLI) | payer MEDICAID ==
--- NOTE | 2023-02-18 12:57 | XRAY Report ---
PROCEDURE: Knee 4 View LT INDICATIONS: left knee pain TECHNIQUE: 4 views of the left knee(s) were acquired. COMPARISON: X-ray bilateral knees 6- FINDINGS: Bones: No fractures or dislocations. No suspicious bony lesions. There is an overall appearance o f mild to moderate bilateral medial and minimal bilateral lateral compartment narrowing. Minimal to m ild left patellofemoral compartment narrowing. There is mild lateral patellar subluxation. No erosion s. Soft tissues: No joint effusion. No suspicious soft tissue calcifications. IMPRESSION: Stable interval exam demonstrating personally bilateral medial compartment degenerative narrowing, left greater than right. Reviewed by: Ghada Mendez MD on 02/18/2023 12:56 PM PDT Approved by: Ghada Mendez MD on 02/18/2023 12:56 PM PDT Station ID: [id number]
== END 2023-02-18 10:04 | disposition home or self-care (01) ==
LOC: DI.WOS 10:03
PROVIDERS: ATTEND Orthopaedic Surgery
DX: M71.22 Synovial cyst of popliteal space [Baker], left knee (principal); M17.0 Bilateral primary osteoarthritis of knee

== ENCOUNTER 2023-03-04 10:10 | Outpatient (CLI) | payer MEDICAID ==
[~2023-03-04 10:10] MED LIST changes: +LIDOCAINE-MPF 1% 5 ML VIAL ONE; -lidocaine 1% 20 ML MDV ONE
[2023-03-04] MEDS ORDERED: LIDOCAINE-MPF 1% 5 ML VIAL TD ONE (11:40)
--- NOTE | 2023-03-04 14:36 | Ultrasound Report ---
PROCEDURE: Popliteal cyst aspiration INDICATIONS: POPLITEAL CYST TECHNIQUE: The indications, alternatives, benefits, risks, and complications of the procedure were explained to the patient. Written informed consent was obtained and placed in the chart. The area of interest wa s examined sonographically and a site was chosen for ultrasound guided percutaneous sampling. The sk in was prepared and draped in the usual fashion, and anesthetized with 1% lidocaine infiltrated from the skin down to the lesion. Multiple passes were then performed, with contents emptied into an [facility]r [facility] pathology specimen container. A bandage was applied to the area of access at completion of t he study. COMPARISON: 05/23/2022 FINDINGS: Location(s) of lesion(s) sampled: Left popliteal cyst Spray: 18-gauge spinal needle Number of passes: 1 Medications: 1% lidocaine for local anaesthesia. Complications: None. IMPRESSION: Successful aspiration of left popliteal cyst. About 17 cc of thick yellow-tinged clear fluid was aspi rated. Reviewed by: Osman Silva MD on 03/04/2023 2:35 PM PDT Approved by: Osman Silva MD on 03/04/2023 2:35 PM PDT Station ID: [id number]
--- NOTE | 2023-03-04 17:22 | XRAY Report ---
PROCEDURE: Cervical Spine Comp w/Flex/Ext INDICATIONS: CERVICALGIA TECHNIQUE: 11 views of the cervical spine were acquired. COMPARISON: CT of cervical spine dated 08/18/2022 and cervical spine radiograph dated 08/15/2022. FINDINGS: Bones: There is straightening of normal cervical lordosis. Degenerative endplate changes and bilatera l facet hypertrophic changes are noted throughout cervical spine more notably at C4-5 through C6-7 le vels. No acute fracture or dislocation. No suspicious bony lesions. There is decreased range of mauricio on between flexion and extension, with preserved cervical spine alignment. Oblique views show bilater al bony foraminal stenosis at C4-5 through C6-7 levels. Soft tissues: Prevertebral soft tissues are normal in thickness. IMPRESSION: Degenerative disc disease in mid to lower cervical spine with bilateral bony foraminal s tenosis seen oblique views. Decreased range of motion on lateral flexion and extension views with pre served cervical spine alignment. No acute fracture or dislocation. Reviewed by: Nasim Lezama MD on 03/04/2023 5:20 PM PDT Approved by: Nasim Lezama MD on 03/04/2023 5:20 PM PDT Station ID: [id number]
== END 2023-03-04 10:11 | disposition home or self-care (01) ==
LOC: DI 10:10
PROVIDERS: ATTEND Orthopaedic Surgery
DX: M71.22 Synovial cyst of popliteal space [Baker], left knee (principal)
CPT/HCPCS: 10005

== ENCOUNTER 2023-06-20 09:02 | Emergency (ER) | payer MEDICAID ==
--- NOTE | 2023-06-20 09:26 | ED Physician Documentation ---
PD HPI ABD PAIN - Stated complaint Stated Complaint: GI, ABD PX - Chief complaint Chief Complaint: Abd Pain - History obtained from History obtained from: Patient - History of Present Illness Timing - onset: How many weeks ago (2) Timing - duration: Weeks (couple of weeks.) Timing - details: Waxing and waning Quality: Cramping, Aching, Fullness/distended, Pain Location: All over / everywhere, Other (lower abd) Radiation: No: Lower back Improved by: BM Worsened by: No: Eating Associated symptoms: Constipation (is passing some small "hard round" amounts of stool. Has gas and belching. eeling intermittent abd distension.). No: Fever, Nausea, Vomiting, Diarrhea Similar symptoms before: No diagnosis (presumed constipation from recent visits to office and ER.) Recently seen: Emergency Dept (Seen 6 days ago with similar symptoms. Had labs and CT scan that did not show any acute abnormalities. Large amount of stool was noted. She continues with bloating, gassiness and small stool only.) Review of Systems Constitutional: denies: Fever, Chills Nose: denies: Rhinorrhea / runny nose, Congestion Throat: denies: Sore throat Respiratory: denies: Cough GI: reports: Abdominal Swelling (feeling of ullness and bloating.), Constipation. 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 : None HEENT: None Psych: Depression Musculoskeletal: None Derm: None - Past Surgical History Past Surgical History: Yes General: Colonoscopy - Present Medications Home Medications: Ambulatory Orders Medication Instructions Recorded Confirmed Ascorbic Acid [Vitamin C] 2,000 mg PO DAILY 05/11/21 06/14/23 Sertraline HCl 100 mg PO DAILY 05/11/21 06/14/23 Ciprofloxacin HCl 1 tablet PO BID 06/14/23 06/14/23 metroNIDAZOLE [Flagyl] 500 mg PO BID 06/14/23 06/14/23 polyethylene glycoL 3350(BULK) 17 gm PO TID PRN #1 each 06/20/23 [Miralax] - Allergies Allergies/Adverse Reactions: Allergies Allergy/AdvReac Type Severity Reaction Status Date / Time No Known Drug Allergies Allergy Verified 06/20/23 09:17 - Social History Does the pt smoke?: No Smoking Status: Never smoker Does the pt drink ETOH?: Yes Does the pt have substance abuse?: No - Immunizations Immunizations are current?: Yes - POLST Patient has POLST: No PD ED PE NORMAL - Vitals Vital signs reviewed: Yes - General General: Alert and oriented X 3, No acute distress, Well developed/nourished - Cardiac Cardiac: RRR, No murmur - Respiratory Respiratory: Clear bilaterally - Abdomen Abdomen: Normal bowel sounds, Soft, Non distended, No organomegaly, Other (some fullness lower abd/suprapubic area. ) - Rectal Rectal: Deferred (Nursing noted no obvious rectal obsctruction with inserting and giving enema. ) - Derm Derm: Normal color Results - Vitals Vitals: Vital Signs - 24 hr 06/20/23 06/20/23 06/20/23 09:14 10:17 11:54 Temperature 36.4 C L Heart Rate 65 49 L Respiratory 16 16 Rate Blood Pressure 121/68 134/77 H 112/65 O2 Saturation 98 100 06/20/23 12:34 Temperature Heart Rate 47 L Respiratory 16 Rate Blood Pressure 131/64 H O2 Saturation 100 Oxygen O2 Source Room air PD Medical Decision Making - ED course Complexity details: considered differential, d/w patient ED course: The patient has had undulating amount of abdominal fullness and bloating with some belching and gas. She states small firm stools intermittently. Seen in the ER 6 days ago in the office a couple of days prior to that for similar symptoms. Had labs and CT scan 6 days ago without any obvious acute findings. Copious amounts of stool was noted on the report. Patient was given MiraLAX that she has been taking daily. Also used a docusate daily. She did a Dulcolax suppository glycerin suppository earlier today. Only small amounts of stool output. Here for feeling of bloating and concern for the constipation. Abdominal exam is benign without any tenderness or distention. Bowel sounds are present but hypoactive. She was given a dose of lactulose orally and an enema rectally. The patient was hoping she would have a large copious stool output here in the ER. I verbalized expectation of trying to get things started moving better with the emphasis on continuing MiraLAX and other medicines at home with improved stool output through the day today and into tomorrow. She had minimal stool output here from the enema. We will have her augment the MiraLAX significantly at home Departure - Departure Disposition: 01 Home, Self Care Clinical Impression: Abdominal bloating Constipation Qualifiers: Constipation type: unspecified constipation type Qualified Code(s): K59.00 - Constipation, unspecified Condition: Stable Record reviewed to determine appropriate education?: Yes Instructions: ED Constipation Follow-Up: Chelsey Monroy MD [Primary Care Provider] - Prescriptions: polyethylene glycoL 3350(BULK) [Miralax] 17 gm PO TID PRN #1 each PRN Reason: Constipation Comments: With your MiraLAX at home, I would use a dose of it with the 17 g in 4 to 8 ounces of fluid every 1-2 hours through the day today and this evening until you are having some stool output regularly. Hold back at that point in revert to once or twice daily for the next several days after that. You can continue with some docusate stool softener as well. Stay well-hydrated. Recheck if not improved well over the next couple of days. I sent a prescription for the MiraLAX to [facility] in [place]. Forms: PCP List Discharge Date/Time: 06/20/23 12:35
[2023-06-20] MEDS ORDERED: LACTULOSE 10 GM /15 ML UDC PO STA (09:48)
[2023-06-20] MEDS ORDERED: MINERAL OIL ENEMA 133 ML BOTTLE RC STA (09:48)
[2023-06-20 12:40] VITALS: BP 131/64
== END 2023-06-20 12:35 | disposition home or self-care (01) ==
LOC: ED 09:02
DX: K59.00 Constipation, unspecified (principal); R14.0 Abdominal distension (gaseous); E78.00 Pure hypercholesterolemia, unspecified; Z79.899 Other long term (current) drug therapy
CPT/HCPCS: 51798; 99282; 99283; A9270

== ENCOUNTER 2024-07-16 10:05 | Outpatient (CLI) | payer MEDICAID ==
[2024-07-16 10:15] LABS: BASOPHILS # (AUTO) 0.1 10^3/uL (0.0-0.1); BASOPHILS % (AUTO) 1.3 %; EOSINOPHILS # (AUTO) 0.2 10^3/uL (0.0-0.7); EOSINOPHILS % (AUTO) 4.8 %; HCT - HEMATOCRIT 45.2 % (37.0-47.0); HGB - HEMOGLOBIN 14.7 g/dL (12.0-16.0); LYMPHOCYTES # (AUTO) 1.3 10^3/uL (1.5-3.5); LYMPHOCYTES % (AUTO) 32.3 %; MEAN CORPUSCULAR HEMOGLOBIN 29.1 pg (27.0-31.0); MEAN CORPUSCULAR HGB CONC 32.5 g/dL (32.0-36.0); MEAN CORPUSCULAR VOLUME 89.5 fL (81.0-99.0); MEAN PLATELET VOLUME 9.5 fL (7.9-10.8); MONOCYTES # (AUTO) 0.3 10^3/uL (0.0-1.0); MONOCYTES % (AUTO) 7.5 %; NEUTROPHILS # (AUTO) 2.2 10^3/uL (1.5-6.6); NEUTROPHILS % (AUTO) 53.8 %; PLT - PLATELET COUNT 213 10^3/uL (130-450); RED BLOOD COUNT 5.05 10^6/uL (4.20-5.40); RED CELL DISTRIBUTION WIDTH 13.4 % (12.0-15.0)
[2024-07-16 10:39] LABS: ALBUMIN 4.5 g/dL (3.2-5.5); ALBUMIN/GLOBULIN RATIO 1.5 (1.0-2.2); BILIRUBIN,TOTAL 0.6 mg/dL (0.2-1.0); CALCIUM 9.7 mg/dL (8.5-10.3); CREATININE 0.6 mg/dL (0.6-1.3); TOTAL PROTEIN 7.6 g/dL (6.4-8.9)
[2024-07-16 10:51] LABS: THYROID STIMULATING HORMONE 1.76 uIU/mL (0.34-5.60)
== END 2024-07-16 10:06 | disposition home or self-care (01) ==
LOC: LAB 10:05
PROVIDERS: ATTEND Internal Medicine
DX: E78.49 Other hyperlipidemia (principal); I10 Essential (primary) hypertension; I27.20 Pulmonary hypertension, unspecified; Z13.29 Encounter for screening for other suspected endocrine disorder
CPT/HCPCS: 36415; 80053; 84443; 85025